=== PATIENT | female | born 1955 | race Caucasian/White ===

== ENCOUNTER 2023-07-22 05:51 | Emergency (ER) | payer MEDICARE, MEDICAID ==
[~2023-07-22 05:51] MED LIST: ALBU18HF2 INH; AMIT50TA15 PO; BACL20TA84 PO; CLON-527 PO; ESCI20TA39 PO; FENO134C21 PO; HYDR-4353 PO; TRAZ-91 PO
== END 2023-07-22 08:26 | disposition left against medical advice (07) ==
LOC: ER 05:51
DX: R21 Rash and other nonspecific skin eruption (principal); Z53.21 Procedure and treatment not carried out due to patient leaving prior to being seen by health care provider; F17.210 Nicotine dependence, cigarettes, uncomplicated; Z88.8 Allergy status to other drugs, medicaments and biological substances; Z88.1 Allergy status to other antibiotic agents; Z88.5 Allergy status to narcotic agent; Z91.041 Radiographic dye allergy status; Z79.899 Other long term (current) drug therapy; Z79.1 Long term (current) use of non-steroidal anti-inflammatories (NSAID)

== ENCOUNTER 2024-10-14 23:38 | Inpatient (IN) | payer MEDICARE, MEDICAID ==
[~2024-10-14] VITALS: Ht 167.6 cm; Wt 47.3 kg
[2024-10-15] VITALS (14 sets, daily range): BP systolic 96–152; BP diastolic 51–84; PULSE 89–113; RESP 16–26; TEMP 98.2–98.7; O2SAT 95–100
--- NOTE | 2024-10-15 00:42 | Physician Documentation ---
History of Present Illness ~ General Chief Complaint: See Chief Complaint Stated Complaint: BUGS,MULTIPLE COMPLAINTS Time Seen by MD: 00:35 Primary Medical Doctor: rae lambert Mode of Arrival: EMS, Stretcher History of Present Illness Initial Comments Patient presents to the emergency room brought in by EMS. Patient was no specific complaints. AGATHA had approached the patient and noted that there was an outstanding warrant however she would not be cleared therefore EMS was called. 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 She reports that this has been going on for two weeks. She was also noted to have matted hair that it was infested with maggots and other insects. She does endorse that her scalp it was causing her significant irritation. Medication Reconciliation Allergies: Coded Allergies: lorazepam (Verified Allergy, Intermediate, LOCK JAW, SPASMS, 08/08/13) amoxicillin (Verified Allergy, Unknown, bleeding ulcers, 03/19/15) bupropion (Verified Allergy, Unknown, suicidal thoughts., 03/19/15) codeine (Verified Allergy, Unknown, 03/19/15) erythromycin base (Verified Allergy, Unknown, 03/19/15) Scheduled Albuterol Sulfate (Ventolin Hfa), 2 PUFFS INH Q4HPRN, (Reported) Amitriptyline Hcl* (Elavil*), 2 TAB PO HS, (Reported) Baclofen (Baclofen), 20 MG PO HS, (Reported) Clonazepam* (Klonopin*), 2 MG PO HS, (Reported) Escitalopram Oxalate (Escitalopram Oxalate), 1 TABLET PO DAILY, (Reported) Fenofibrate,Micronized (Fenofibrate), 1 CAP PO DAILY, (Reported) Hydrocodone Bit/Acetaminophen (Dunbar 10-325 Tablet), 1 TAB PO Q6H PRN PAIN, (Reported) Trazodone Hcl* (Trazodone Hcl*), 100 MG PO HS, (Reported) Past Medical History Past Medical History: Seizures, Chronic Pain, Chronic Back Pain Past Surgical History: , other Alcohol Use: Occasionally Drug Use: none Review of Systems ROS Patient endorses scalp irritation as well as left eye irritation Physical Exam Physical Exam Vital Signs: Temperature: 99.1, Source: Oral, Heart Rate: 75, Respiratory Rate: 16, BP: 103/61, Pulse Oximetry: 98 Oxygen Flow Rate: 0 Physical Exam General: Patient is awake, alert, cooperative. Demonstrates poor insight. Homeless appearing. Very poor hygiene Head: Normocephalic with matted hair with insects and maggots crawling within it Eyes: Right eye normal left eye exam it was limited secondary to significant phlebitis unable to evaluate eye. No ecchymosis. ENT: Mucous membranes moist. Neck: Supple, trachea is midline. Chest: Clear to auscultation bilaterally without rales, rhonchi, or wheezes. There is no accessory muscle use or retractions. Cardiac: Tachycardic and regular without murmurs, gallops, or rubs. Abd: Soft, nondistended, nontender, with normoactive bowel sounds. No guarding, rebound, or rigidity. Progress Progress Note Patient agreeable to have her head shaved. After shaving patient's head a wound measuring approximately 0.5 cm could be seen in her left scalp along with approximately seven holes in her occiput with maggots crawling out of the holes. Despite shaving her head her scalp is still covered with insect and maggots. Patient continues to demonstrate very poor insight. We are able to get some records from [facility] however she was not seen and there was only triage notes stating that she was sleeping in the hallway and that her friend could pick her up using telepathy. Patient was being taken back to decontamination area for a 2nd washing and permethrin application Results/Orders Results/Orders Orders - RHYS OROZCO MD Urinalysis (10/15/24 01:10) Drug Screen, Urine (10/15/24 01:10) Med Rec (10/15/24 01:10) 1799.11 (10/15/24 01:10) Close Observation Level (10/15/24 01:10) Covid19 Binax Poc Result Entry (10/15/24 01:10) Substance Use Navigator (10/15/24 01:10) Regular Diet (10/15/24 Breakfast) Ct Facial Bones/Soft Tissue (10/15/24 03:45) Ct Head (10/15/24 03:45) Culture Blood (10/15/24 02:14) Chest,Single View (10/15/24 04:20) Completed Orders - RHYS OROZCO MD Permethrin Topical Cream (Elimite Cream (10/15/24 01:10) Cbc/Diff (10/15/24 01:10) Ethanol (10/15/24 01:10) TSH (10/15/24 01:10) Procalcitonin (10/15/24 01:10) Ct Facial Bones/Soft Tissue (10/15/24 03:45) Ct Head (10/15/24 03:45) CMP (10/15/24 01:10) Vancomycin/Ns 1 Gm Add-[place] (Vancomyc (10/15/24 01:20) Ceftriaxone/E8g-Lqplfnss 1gm (Rocephin 1 (10/15/24 01:20) Normal Saline 1000ml (Sodium Chloride 10 (10/15/24 01:50) Lacticsepsis (10/15/24 02:14) Normal Saline 1000ml (Sodium Chloride 10 (10/15/24 03:35) Chest,Single View (10/15/24 04:20) Lactic,2hr (10/15/24 04:34) Free T4 (10/15/24 04:40) MG (10/15/24 03:10) PHOS (10/15/24 03:10) Thiamine Inj. (Thiamine Inj.) (10/15/24 05:20) Medications Received in ER Medications (Trade) Dose Ordered Sig/Vickie Route PRN Reason Start Time Stop Time Status Last Admin Dose Admin (Elimite Cream 5%) 1 applic ONCE ONCE TP 10/15/24 01:10 10/15/24 01:17 DC 10/15/24 01:59 1 APPLIC Vancomycin HCl 250 ml @ 166 mls/hr ONCE ONCE IV 10/15/24 01:20 10/15/24 02:50 DC 10/15/24 01:59 166 MLS/HR Ceftriaxone Sodium 50 ml @ 100 mls/hr ONCE ONCE IV 10/15/24 01:20 10/15/24 01:49 DC 10/15/24 01:59 100 MLS/HR Sodium Chloride 1,000 ml @ 1,000 mls/hr ONCE ONCE IV 10/15/24 01:50 10/15/24 02:49 DC 10/15/24 01:59 1,000 MLS/HR Sodium Chloride 1,000 ml @ 1,000 mls/hr ONCE ONCE IV 10/15/24 03:35 10/15/24 04:34 DC 10/15/24 03:42 1,000 MLS/HR Vital Signs 10/14/24 10/15/24 10/15/24 10/15/24 23:46 00:29 00:29 02:28 Temp 99.1 Pulse 118 75 Resp 18 16 16 22 B/P (MAP) 103/61 (75) Pulse Ox 98 98 O2 Flow Rate 0 10/15/24 10/15/24 10/15/24 02:50 03:46 05:03 Pulse 95 92 89 Resp 16 16 18 B/P (MAP) 97/58 (71) 141/73 (95) 115/52 (73) Pulse Ox 99 99 99 O2 Flow Rate 0 Laboratory Tests Test 10/15/24 01:52 10/15/24 02:45 10/15/24 03:10 White Blood Count 7.8 Red Blood Count 4.32 Hemoglobin 11.8 L Hematocrit 35.8 Mean Corpuscular Volume 83.0 Mean Corpuscular Hemoglobin 27.2 Mean Corpuscular Hemoglobin Concent 32.8 L Red Cell Distribution Width 15.0 H Platelet Count 580 H Mean Platelet Volume 7.5 Neutrophils (%) (Auto) 78.3 H Lymphocytes (%) (Auto) 12.9 L Monocytes (%) (Auto) 8.0 Eosinophils (%) (Auto) 0.5 Basophils (%) (Auto) 0.3 Neutrophils # (Auto) 6.1 Lymphocytes # (Auto) 1.0 L Monocytes # (Auto) 0.6 Eosinophils # (Auto) 0.0 Basophils # (Auto) 0.0 CBC Comment Sodium Level 132 L Potassium Level 3.4 L Chloride Level 95 L Carbon Dioxide Level 19.0 L Anion Gap 18 H Blood Urea Nitrogen 29 H Creatinine 2.11 H Estimated GFR/1.73 m2 23 BUN/Creatinine Ratio 13.7 Glucose Level 170 H Lactic Acid Level 9.0 *H 7.3 *H Calcium Level 7.8 L Total Bilirubin 0.8 Aspartate Amino Transf (AST/SGOT) 44 H Alanine Aminotransferase (ALT/SGPT) 30 Alkaline Phosphatase 96 Total Protein 6.0 L Albumin 2.0 L Globulin 4.0 Albumin/Globulin Ratio 0.5 L Procalcitonin 7.92 H Thyroid Stimulating Hormone (TSH) 8.94 H Chemistry Comments Ethyl Alcohol Level < 10 SARS-CoV-2 Antigen (Rapid) Negative Phosphorus Level 5.4 H Magnesium Level 1.8 Free Thyroxine 0.89 Microbiology Date/Time Source Procedure Growth Status 10/15/24 03:10 Blood Arm Left Blood Culture - Preliminary NEGATIVE (LESS THAN 24 HOURS) Resulted Medical Decision Making Findings Patient presents to the emergency room brought in by EMS for evaluation. Patient was absolutely covered in bugs upon arrival. Patient's hair was severely matted and we were unable to wash the insects/maggots out. Status post patient's consent we did opt to shave her head and perform 2nd decontamination which revealed that patient had bugs actually coming out of several scalp wounds. I do believe patient was gravely disabled and she was placed on a 1799. Patient's only complaint is that she was tired and wants to sleep. Significant edema over left eye and it was concern for possible periorbital cellulitis therefore CT scan was performed which was negative for abscess and patient denies any pain with eye movement and he had not feel she was suffering from preseptal periorbital cellulitis although the CT scans were performed without contrast given her renal status. Empirical antibiotics initiated given patient's significant lactic acidosis. Tachycardia improved with IV fluids as has her lactic acid but still remains significantly high along with significant acid-base disturbances may reflect dehydration. Upon re-evaluation patient was lying on her right side in her right eye it was now become edematous. Possible component of hypoalbuminemia. Patient was thyroid was checked and although her TSH was elevated her free T4 was reassuring and he had not believe she was suffering from myxedema. Elevated procalcitonin but normal white blood cell count noted. Patient was case it was very complicated and given severe lactic acidosis and metabolic disturbances agile business analyst consulted for admission. Departure Admitted to Inpatient Unit: yes, to agile business analyst Impression: Primary Impression: Electrolyte disturbance Additional Impressions: Lactic acidosis Malnutrition Periorbital edema Infestation by insect Renal failure Referrals: NO PRIMARY CARE PROVIDER (PCP) Critical Care Note Total Time (mins): 129 Critical Care Note The very real possibility of a deterioration of this patient's condition required the highest level of my preparedness for sudden, emergent intervention. I provided critical care services, which included medication orders, frequent reevaluations of the patient's condition and response to treatment, ordering and reviewing test results, and discussing the case with various consultants. Excludes time spent performing separately billable procedures. The critical care time associated with the care of the patient was 129 minutes not counting procedures Signature Scribe Signature: No scribe Attestation: The note accurately reflects work and decisions made by me.Rhys Orozco MD 10/15/24 05:37 RHYS OROZCO MD Oct 15, 2024 00:42
[2024-10-15] MEDS: Permethrin Cream 60gm TP ONE (01:59)
[2024-10-15] MEDS: normal saline 1000ml 1,000 ML IV ONE ×2 (01:59→03:42)
[2024-10-15] MEDS: CefTRIAXone/D5W-Rocephin 1gm 50 ML IV ONE (01:59)
[2024-10-15] MEDS: vancomycin/NS 1 GM ADD-VANTAGE 250 ML IV ONE (01:59)
[2024-10-15 03:14] LABS: ALANINE AMINOTRANSFERASE 30 U/L (12-78); ALBUMIN/GLOBULIN RATIO 0.5 (1.1-1.5); ALKALINE PHOSPHATASE 96 IU/L (46-116); ANION GAP 18 (8-16); ASPARTATE AMINO TRANSFERASE 44 U/L (10-37); BASOPHILS % (AUTO) 0.3 % (0-1); BILIRUBIN,TOTAL 0.8 MG/DL (0.1-1.0); BLOOD UREA NITROGEN 29 MG/DL (7-18); BUN/CREATININE RATIO 13.7 (10.0-20.0); CALCIUM 7.8 MG/DL (8.5-10.1); CHLORIDE 95 MMOL/L (99-107); CREATININE 2.11 MG/DL (0.40-0.90); EOSINOPHILS % (AUTO) 0.5 % (0-6); GLUCOSE 170 MG/DL (70-104); HEMATOCRIT 35.8 % (35.0-45.0); HEMOGLOBIN 11.8 g/dl (12.0-16.0); LYMPHOCYTES % (AUTO) 12.9 % (21-51); MEAN CORPUSCULAR HEMOGLOBIN 27.2 PG (27.0-31.0); MEAN CORPUSCULAR HGB CONC 32.8 g/dL (33.0-36.5); MEAN PLATELET VOLUME 7.5 FL (7.4-10.4); MONOCYTES # (AUTO) 0.6 X10'3 (0-0.9); NEUTROPHILS # (AUTO) 6.1 X10'3 (1.8-7.7); NEUTROPHILS % (AUTO) 78.3 % (42-75); PLATELET COUNT 580 X10'3 (140-440); POTASSIUM 3.4 MMOL/L (3.5-5.1); RED BLOOD COUNT 4.32 X10'6 (4.20-5.60); SODIUM 132 MMOL/L (135-145); WHITE BLOOD COUNT 7.8 X10'3 (4.5-11.0); eGFR 23 ML/MIN
[2024-10-15 03:24] LABS: ETHANOL < 10 MG/DL (<10); THYROID STIMULATING HORMONE 8.94 ulU/ml (0.34-4.50)
--- NOTE | 2024-10-15 04:55 | RADIOLOGY REPORT ---
EXAM: CT CT HEAD INDICATION: eye swelling TECHNIQUE: CT of the head without intravenous contrast. Radiation Dose : 1. Head: CT Dose: CTDI volume is 71.7 mGy. Dose-length product is 1260.9 mGy*cm The dose indicators for CT are the volume Computed Tomography (CT) Dose Index (CTDIvol) and the Dose Length Product (DLP), and are measured in units of mGy and mGy-cm, respectively. These indicators are not patient dose, but values generated from the CT scanner acquisition factors. The report includes radiation exposure data for exposures received during this examination. COMPARISON: None FINDINGS: There is no evidence of acute intracranial hemorrhage, extra-axial collection, mass effect, midline s hift, herniation or hydrocephalus. The ventricles, sulci and cisterns are age appropriate. The montes de oca-white differentiation is intact. The visualized paranasal sinuses and mastoid air cells are clear. Left periorbital soft-tissue swelling. IMPRESSION: No acute intracranial abnormality. Radiation optimization: All CT scans at this facility use at least one of these dose optimization muna hniques: automated exposure control mA and/or kV adjustment per patient size (includes targeted exam s where dose is matched to clinical indication) or iterative reconstruction.
--- NOTE | 2024-10-15 05:00 | RADIOLOGY REPORT ---
HISTORY: eye swelling TECHNIQUE: Nonenhanced axial images through the facial bones with coronal and sagittal MPR. Radiation Dose Information: CT Dose: CTDI volume is 27.4 mGy. Dose-length product is 462.9 mGy*cm COMPARISON: None FINDINGS: Mandible: Unremarkable Maxilla: Unremarkable Zygomatic arches: Unremarkable Nasal bone: Unremarkable Orbits: Unremarkable Sinuses: Clear Facial swelling: Severe diffuse facial soft-tissue swelling most prominent around the orbits and lef t face. Extensive bilateral cervical chain lymphadenopathy most of which are subcentimeter in size, short axi s. IMPRESSION: Severe diffuse facial soft-tissue swelling most prominent around the orbits and left face. Extensive nonspecific bilateral cervical chain lymphadenopathy most of which are subcentimeter in siz e, short axis. Radiation optimization: All CT scans at this facility use at least one of these dose optimization muna hniques: automated exposure control mA and/or kV adjustment per patient size (includes targeted exam s where dose is matched to clinical indication) or iterative reconstruction.
[2024-10-15 05:01] LABS: FREE T4 (FREE THYROXINE) 0.89 NG/DL (0.73-1.40)
--- NOTE | 2024-10-15 05:01 | RADIOLOGY REPORT ---
CHEST RADIOGRAPH Indication: admision Technique: Single frontal view of the chest was obtained COMPARISON: None FINDINGS: Lines and Tubes: None Lungs: Clear Pleura: Small right pleural effusion No pneumothorax. Cardiomediastinal contours: Unremarkable Bones: Unremarkable IMPRESSION: Small right pleural effusion
[2024-10-15 05:18] LABS: MAGNESIUM 1.8 MG/DL (1.5-2.4); PHOSPHORUS 5.4 MG/DL (2.3-4.5)
[2024-10-15] MEDS: thiamine 100mg/ml 2ml inj. IV ONE (05:34)
[2024-10-15] MEDS ORDERED: mag hydrox/Alum hydrox/simeth 30ml oral suspension PO PRN (06:20)
[2024-10-15] MEDS ORDERED: ondansetron/PF 4mg/2ml inj IV PRN (06:20)
[2024-10-15] MEDS ORDERED: potassium Cl 40MEQ/1/2NS 520ml 520 ML IV PRN (06:20)
[2024-10-15] MEDS ORDERED: magnesium sulf-water 4G/100mL 100 ML IV PRN (06:20)
[2024-10-15] MEDS ORDERED: magnesium Cl slow-release 64mg tablet PO PRN (06:20)
[2024-10-15] MEDS ORDERED: potassium Cl 20 mEq SR tablet PO PRN (06:20)
[2024-10-15] MEDS ORDERED: magnesium sulf-water 2g/50mL 50 ML IV PRN (06:20)
[2024-10-15] MEDS: normal saline 1000ml 1,000 ML IV SCH (06:44)
[2024-10-15] MEDS ORDERED: vancomycin/NS 1 GM ADD-VANTAGE 250 ML IV PRN ×2 (07:20→12:05)
--- NOTE | 2024-10-15 07:35 | HISTORY AND PHYSICAL ---
History & Physical - Short Providers to ~ History of Present Illness Chief Complain & History 69 undomiciled female h/o depression, chronic pain was brought in for inappropriate behavior, non-compliance with law enforcement. On presentation was found to be dishevelled with significant infestations. Agree to have head shaved, permethrin applied. Was then found to have many maggots coming from scalp. Also found to have generalized anasarca with scalp, periorbital and facial edema. No specific cellulitic areas noted. Labs were significant for a very low albumin, a creatinine of 2.1, and a lactic acid of 9 that came down to 7 with hydration. Allergies: Coded Allergies: lorazepam (Verified Allergy, Intermediate, LOCK JAW, SPASMS, 08/08/13) bupropion (Verified Allergy, Unknown, suicidal thoughts., 03/19/15) codeine (Verified Allergy, Unknown, 03/19/15) erythromycin base (Verified Allergy, Unknown, 03/19/15) amoxicillin (Verified Adverse Reaction, Unknown, bleeding ulcers, 10/15/24) Home Medications Home Medications Active Reported Escitalopram Oxalate 20 Mg Tablet 1 Tablet PO DAILY Fenofibrate 134 Mg Capsule 1 Cap PO DAILY Ventolin Hfa (Albuterol) 8.5 Gm Inhaler 2 Puffs INH Q4HPRN Elavil* (Amitriptyline HCl) 50 Mg Tablet 2 Tab PO HS Klonopin* (Clonazepam) 1 Mg Tablet 2 Mg PO HS [place] 10-325 Tablet (Acetaminophen/Hydrocodone Bitart) 1 Each Tablet 1 Tab PO Q6H PRN PAIN Baclofen 20 Mg Tablet 20 Mg PO HS FALL RISK Trazodone Hcl* (Trazodone HCl) 100 Mg Tablet 100 Mg PO HS Exam Last recorded Lab results: 10/15/24 0152 10/15/24 0152 Vitals: Vital Signs Date Time Temp Pulse Resp B/P (MAP) Pulse Ox O2 Delivery O2 Flow Rate FiO2 10/15/24 06:39 17 10/15/24 06:39 98.1 94 98 0 Other: Exam limited to remote assessment Dishevelled female sleepy but easily arousable, oriented x 3, relatively non- compliant with exam Facial and periorbital edema appreciated Advance Care Planning Advanced Care planning: N/A Problem\Assessment\Plan Additional Plan Impression: Lactic acidosis ? due to dehydration +/- sepsis Renal failure ? ROB vs CKD Maggot infestation Severe malnutrition Rec: Cont IVF Cont thiamine Cont vanco plus CTX for now F/U serial lactic acid, ensure it is clearing F/U UA with reflex to culture F/U blood cultures Monitor for complications of malnutrition and refeeding Petroleum jelly to maggot holes for suffocation Social work consult Enoxaparin for VTE proph Plan reviewed with bedside team. Patient seen through remote audiovisual assessment through HIPAA compliant setup. All labs, flowsheets, and images reviewed Cumulative nonprocedural care time spent in directed patient care = 60 min CHERIE ALBRECHT MD Oct 15, 2024 07:35
[2024-10-15] MEDS ORDERED: famotidine 10mg tablet PO SCH (08:00)
[2024-10-15] MEDS ORDERED: thiamine 100mg/ml 2ml inj. IM SCH (08:00)
[2024-10-15] MEDS ORDERED: famotidine 20mg tablet PO SCH (08:14)
[2024-10-15] MEDS: famotidine 20mg tablet PO SCH (08:25)
[2024-10-15] MEDS: ringers solution, lacted 1,000 ML IV ONE ×2 (08:25→08:26)
[2024-10-15] MEDS: docusate sod 100mg capsule PO SCH (08:25)
[2024-10-15] MEDS: K and/or MAG REPLACEMENT MC SCH (08:30)
[2024-10-15] MEDS: diphenhydrAMINE 2%/zinc acetate cream TP SCH (09:34)
[2024-10-15] MEDS: acetaminophen 325mg tablet PO PRN ×2 (09:54→16:53)
[2024-10-15 09:55] LABS: PLATELET ESTIMATE INCREASED; TOTAL CELLS COUNTED 100
[2024-10-15 09:56] LABS: LARGE PLATELETS FEW
[2024-10-15] MEDS: ringers solution, lacted 1,000 ML IV SCH (10:35)
[2024-10-15] MEDS: MULTIVIT-MIN/FERROUS GLUCONATE 9 MG/15 ML LIQUID PO SCH (10:52)
--- NOTE | 2024-10-15 11:24 | PROGRESS NOTE- Residence ---
Progress Note - Resident Providers to CC Resident Creating Document: VASHTI ROACH RES CC: JOMAR CABALLERO MD ~ Central Line/PICC still needed: N\A Antibiotic Timeout Antibiotic Ordered?: No Subjective Patient is seen this morning in the ICU. She was sleepy, telling her name and date of . Objective Vital Signs Date Time Temp Pulse Resp B/P (MAP) Pulse Ox O2 Delivery O2 Flow Rate FiO2 10/15/24 11:00 98.2 110 20 103/64 (77) 98 Room Air 10/15/24 06:39 0 Result Diagram: 10/15/24 0152 10/15/24 0826 General: Elderly female, thin, malnourished, not in apparent distress, sunken facial fat, swelling around bith eyes , and head shaven and covered with a cover Head: Normocephalic with an atraumatic Eyes: not able to open eyes fully Nose and throat: No polyps, septum- normal, no mucosal ulcers Neck: Supple, no lymphadenopathy, no carotid bruit Respiratory: No use of accessory muscles of respiration, Bilateral normal vesiscular breath sounds heard. 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 As per ER history RPDA has approached with the patient and noted there was an outstanding warrant, then EMS was called and she could not be cleared. And she came to the ER she is complaining of swelling of her left eye, with itching of the scalp. In the ER patient head was shaved and holes were found in the occiput with maggots crawling out of the holes. Patient was taken to decontamination area and washroom and permethrin was applied. Was put on 1798 hold for gravely disabled. Is admitted to ICU for severe lactic acidosis Plan Plan Lactic acidosis-resolved HAGMA Severe dehydration -lactate normalized 1.9 after receiving IV fluids -anion gap of 18 with bicarbonate 19 at the time of admission -repeat BMP -with 3 L of LR -continue LR at 150 cc/hour Elevated creatinine Hyperphosphatemia Hypocalcemia -baseline creatinine available was 11 years ago -0.54 -suspect elevated creatinine likely secondary to ROB, however low calcium, and increased phos suggests CKD -monitor bmp -f/u on pth -continue IVF as mentioned above Maggots over scalp -permethrin applied -Benadryl p.o. for itching and hydrocortisone cream topical application Suspicion of periorbital cellulitis -bilateral periorbital swelling however CT RV did not show any abscess -WBC is normal with elevated procalcitonin of 7.92 -continue vanco and Rocephin Severe malnutrition Hypoalbuminemia -BMI of 13 with albumin of two -continue multivitamin and thiamine Anxiety/depression Morgellons disease -pending home med reconciliation -currently on [address] [facility], [facility] evaluation be done once medically cleared Hypothyroidism TSH 8.9 -started on levithyroxine 150 mcg? Undomiciled -SS/high risk case manager consulted Code Status: Full code Analgesia/sedation: Line/tube: PIV GI prophylaxis: Pepcid DVT prophylaxis: Lovenox Nutrition: Regular diet PT/OT/SP: Yes Prognosis: Guarded Disposition: Patient is downgraded to floor, ICU team will sign off Vashti Roach, ICU PGY-2 resident Date of Service: Oct 15, 2024 Billing Provider: JOMAR CABALLERO MD, HARIVARSHA, RES Oct 15, 2024 11:24
[2024-10-15 11:43] LABS: URINE AMPHETAMINE SCREEN NEGATIVE (Neg); URINE BARBITUATE SCREEN NEGATIVE (Neg); URINE BENZODIAZEPINES SCREEN NEGATIVE (Neg); URINE CANNABINOID SCREEN POSITIVE (Neg); URINE COCAINE SCREEN NEGATIVE (Neg); URINE METHADONE SCREEN NEGATIVE (Neg); URINE OPIATE SCREEN NEGATIVE (Neg); URINE PHENCYCLIDINE SCREEN NEGATIVE (Neg)
[2024-10-15 11:45] LABS: BILIRUBIN,URINE NEGATIVE (Neg); CLARITY,URINE CLOUDY (Clear); COLOR,URINE YELLOW (Yellow); GLUCOSE, URINE NEGATIVE (Neg); KETONES,URINE NEGATIVE (Neg); LEUKOCYTE ESTERASE ,URINE TRACE (Neg); OCCULT BLOOD,URINE LARGE (Neg); PROTEIN,URINE TRACE mg/dl (Neg); UROBILINOGEN,URINE 0.2 E.U/dL (0.2-1.0)
[2024-10-15 11:53] LABS: UA COLLECTION TYPE NON-SPECIFIED
[2024-10-15] MEDS: diphenhydrAMINE 50 mg/ml inj IV PRN (11:55)
[2024-10-15 12:11] LABS: NITRITES, URINE NEGATIVE (Neg)
[2024-10-15 12:13] LABS: FINE GRANULAR CAST 0-3 /LPF (NEGATIVE); RBC,URINE 0-2 /HPF (0-2); SQUAMOUS EPITHELIAL CELL,UR MANY /LPF (FEW)
[2024-10-15 12:14] LABS: BACTERIA,URINE 4+ /HPF (Neg)
--- NOTE | 2024-10-15 17:35 | CONSULTATION REPORT - RESIDENT ---
Consult Providers to CC Resident Creating Document: JUDYHA ONTIVEROS RES History of Present Illness Reason for Admit\Complaint: Failure to thrive History of Present Illness This is a 69-year-old undomiciled female with a history of depression, chronic pain was brought by EMS. She has matted hair that was infested with maggots and other insects. After patient's consent her head was shaved and D contamination was performed which revealed that the patient had bugs actually coming out of several scalp wounds. The patient was gravely disabled and was placed on 179. She also significant edema over bilateral eyes, there was a concern for possible periorbital cellulitis, CT scan was performed which was negative for abscess. She has a severe lactic acidosis, vancomycin and ceftriaxone was initiated. She was severely dehydrated, started on IV fluids. She was admitted in the ICU for severe lactic acidosis. As the lactic acid levels improved she was downgraded to PCU. Allergies: Coded Allergies: lorazepam (Verified Allergy, Intermediate, LOCK JAW, SPASMS, 08/08/13) bupropion (Verified Allergy, Unknown, suicidal thoughts., 03/19/15) codeine (Verified Allergy, Unknown, 03/19/15) erythromycin base (Verified Allergy, Unknown, 03/19/15) amoxicillin (Verified Adverse Reaction, Unknown, bleeding ulcers, 10/15/24) Home Medications Home Medications Active Reported Escitalopram Oxalate 20 Mg Tablet 1 Tablet PO DAILY Fenofibrate 134 Mg Capsule 1 Cap PO DAILY Ventolin Hfa (Albuterol) 8.5 Gm Inhaler 2 Puffs INH Q4HPRN Elavil* (Amitriptyline HCl) 50 Mg Tablet 2 Tab PO HS Klonopin* (Clonazepam) 1 Mg Tablet 2 Mg PO HS Lincoln 10-325 Tablet (Acetaminophen/Hydrocodone Bitart) 1 Each Tablet 1 Tab PO Q6H PRN PAIN Baclofen 20 Mg Tablet 20 Mg PO HS FALL RISK Trazodone Hcl* (Trazodone HCl) 100 Mg Tablet 100 Mg PO HS Past Medical History Past Medical History Unknown past medical history Past Surgical History Surgical History Comment Unknown surgical history Family History Family History: Patient reports no known family medical history. Past Social History Social History Comment Social history is not known, U tox positive for urine cannabinoids Exam Vitals: Vital Signs Date Time Temp Pulse Resp B/P (MAP) Pulse Ox O2 Delivery O2 Flow Rate FiO2 10/15/24 17:00 98.2 112 26 127/68 (87) 98 Room Air 10/15/24 06:39 0 General: General: Elderly female, thin, malnourished, not in apparent distress, sunken facial fat, swelling around bith eyes , and head shaven and covered with a cover Head: Normocephalic with an atraumatic Eyes: not able to open eyes fully Nose and throat: No polyps, septum- normal, no mucosal ulcers Neck: Supple, no lymphadenopathy, no carotid bruit Respiratory: No use of accessory muscles of respiration, Bilateral normal vesiscular breath sounds heard. 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 As per ER history RPDA has approached with the patient and noted there was an outstanding warrant, then EMS was called and she could not be cleared. And she came to the ER she is complaining of swelling of her left eye, with itching of the scalp. In the ER patient head was shaved and holes were found in the occiput with maggots crawling out of the holes. Patient was taken to decontamination area and washroom and permethrin was applied. Was put on 1798 hold for gravely disabled. Is admitted to ICU for severe lactic acidosis. Lactic acidosis improved Patient is downgraded to PCU. Plan Lactic acidosis-resolved High anion gap metabolic acidosis Positive SIRS Severe dehydration Lactic acid 9.0 at the time of admission with a bicarb of 19.0 an anion gap of 18 WBC count normal, elevated procalcitonin Blood culture Gram-positive cocci in clusters positive in one culture and negative in the other culture., probably contaminant received 3 L of fluids in the ER. Fluids currently running at@ 150 mL/hour Lactic acid improved to 0.9 with continuous IV fluids. Continue vancomycin and ceftriaxone. ROB likely secondary to vasomotor nephropathy Hyperphosphatemia Hypocalcemia Creatinine 2.7, BUN 29, GFR 23 -baseline creatinine available was 11 years ago -0.54 -suspect elevated creatinine likely secondary to ROB, however low calcium, and increased phos suggests CKD -Baseline creatinine is not -monitor bmp -f/u on pth -continue IVF. Maggots infestation -permethrin applied -Benadryl p.o. for itching and hydrocortisone cream topical application periorbital cellulitis can not be ruled out Periorbital edema -bilateral periorbital swelling however CT RV did not show any abscess -WBC is normal with elevated procalcitonin of 7.92 -continue vanco and Rocephin -cold compress recommended Severe malnutrition Hypoalbuminemia -BMI of 13 with albumin of two -continue multivitamin and thiamine Anxiety/depression Morgellons disease -currently on 1798 hold, [facility] evaluation be done once medically cleared Hypothyroidism TSH 8.9 -started on levithyroxine 150 mcg? Undomiciled -SS/shoe caser consulted Code Status: Full code Line/tube: PIV GI prophylaxis: Pepcid DVT prophylaxis: Lovenox Nutrition: Regular diet PT/OT/SP: Yes Prognosis: Guarded Disposition: Patient is downgraded to floor, ICU team will sign off Addendum lactic acidosis poss 2 to infection scalp cellulitis severe bilat upper and lower lid edema, unable to eval eye properly due to edema Date of Service: Oct 15, 2024 Billing Provider: FARHEEN MORRIS MD Common Visit Codes: [id number] INP/OBS CARE (HIGH) HA KIM, RES Oct 15, 2024 17:35 FARHEEN MORRIS MD Oct 15, 2024 19:08
[2024-10-15] MEDS: morphine 2 MG/ML inj. syringe IV PRN (19:10)
[2024-10-15] MEDS: enoxaparin 30mg/0.3ml syringe SUBCUT SCH (19:11)
[2024-10-15] MEDS: thiamine 100mg tablet PO SCH (20:09)
[2024-10-15] MEDS: HYDROcodone/acetaminophen 10/325mg tab PO PRN (20:10)
[2024-10-16] VITALS (9 sets, daily range): BP systolic 117–170; BP diastolic 59–88; PULSE 89–104; RESP 16–20; TEMP 97.2–98.9; O2SAT 94–99
[2024-10-16] MEDS: VANCOMYCIN LEVEL IV SCH (02:14)
[2024-10-16] MEDS ORDERED: VANCOMYCIN LEVEL IV SCH (03:00)
[2024-10-16] MEDS: HYDROcodone/acetaminophen 5mg/325mg tablet PO PRN (04:24)
[2024-10-16 06:03] LABS: BASOPHILS # (AUTO) 0.1 X10'3 (0-0.2); EOSINOPHILS # (AUTO) 0.4 X10'3 (0-0.9); EOSINOPHILS % (AUTO) 4.2 % (0-6); LYMPHOCYTES # (AUTO) 1.4 X10'3 (1.1-4.8); LYMPHOCYTES % (AUTO) 15.3 % (21-51); MEAN CORPUSCULAR HEMOGLOBIN 27.2 PG (27.0-31.0); MEAN CORPUSCULAR VOLUME 82.5 FL (78-98); MEAN PLATELET VOLUME 7.5 FL (7.4-10.4); MONOCYTES # (AUTO) 0.9 X10'3 (0-0.9); NEUTROPHILS # (AUTO) 6.3 X10'3 (1.8-7.7); NEUTROPHILS % (AUTO) 69.5 % (42-75); PLATELET COUNT 383 X10'3 (140-440); RED BLOOD COUNT 2.53 X10'6 (4.20-5.60); RED CELL DISTRIBUTION WIDTH 14.6 % (11.5-14.5)
[2024-10-16 06:08] LABS: HEMATOCRIT 20.8 % (35.0-45.0); HEMOGLOBIN 6.9 g/dl (12.0-16.0)
[2024-10-16 06:20] LABS: ANION GAP 10 (8-16); BLOOD UREA NITROGEN 27 MG/DL (7-18); BUN/CREATININE RATIO 28.1 (10.0-20.0); CALCIUM 7.6 MG/DL (8.5-10.1); CHLORIDE 112 MMOL/L (99-107); CREATININE 0.96 MG/DL (0.40-0.90); GLUCOSE 82 MG/DL (70-104); MAGNESIUM 1.8 MG/DL (1.5-2.4); PHOSPHORUS 3.1 MG/DL (2.3-4.5); SODIUM 144 MMOL/L (135-145); TOTAL CARBON DIOXIDE 21.9 MMOL/L (24-32); eCRCL 42 ML/MIN; eGFR 58 ML/MIN
[2024-10-16 06:21] LABS: ALANINE AMINOTRANSFERASE 31 U/L (12-78); ALBUMIN 1.4 G/DL (3.4-5.0); ALBUMIN/GLOBULIN RATIO 0.5 (1.1-1.5); ALKALINE PHOSPHATASE 70 IU/L (46-116); ASPARTATE AMINO TRANSFERASE 49 U/L (10-37); BILIRUBIN,TOTAL 0.2 MG/DL (0.1-1.0); TOTAL PROTEIN 4.5 G/DL (6.4-8.2)
[2024-10-16 06:31] LABS: VANCOMYCIN,RANDOM 4.4 ug/mL (20.0-30.0)
[2024-10-16] MEDS ORDERED: levoTHYROXINE 75mcg tablet PO SCH (07:00)
[2024-10-16] MEDS: CefTRIAXone/D5W-Rocephin 1gm 50 ML IV SCH (07:45)
[2024-10-16] MEDS: folic acid 1mg tablet PO SCH (07:47)
[2024-10-16] MEDS: potassium Cl 20 mEq SR tablet PO PRN (07:47)
[2024-10-16] MEDS ORDERED: CefTRIAXone/D5W-Rocephin 1gm 50 ML IV SCH (08:00)
[2024-10-16] MEDS: diphenhydrAMINE 25mg capsule PO PRN (08:03)
[2024-10-16] MEDS: NUT.TX.IMPAIRED DIGEST FXN (Ensure Clear) 237 ML PO SCH (08:12)
[2024-10-16] MEDS: multivitamins, therapeutics tablet PO SCH (08:12)
[2024-10-16 08:26] LABS: % IRON SATURATION 2 % (11-46); IRON 4 UG/DL (49-151); TOTAL IRON BINDING CAPACITY 189 UG/DL (259-388)
[2024-10-16] MEDS: morphine 2 MG/ML inj. syringe IV PRN (08:33)
[2024-10-16 08:40] LABS: FERRITIN 53 NG/ML (8-252)
[2024-10-16 09:05] LABS: PRO BRAIN NATRIURETIC PEPTIDE 2770 PG/ML (0-125)
--- NOTE | 2024-10-16 11:17 | PROGRESS NOTE- Residence ---
Progress Note - Resident Providers to CC Resident Creating Document: HA GOODMAN RES ~ Antibiotic Timeout Antibiotic Ordered?: Yes Subjective Patient is seen and examined in the PCU today. She complained of severe pain over her scalp. Pain medications has been given. Her hemoglobin dropped down to 6.8, 1 unit of PRBC ordered. Periorbital swelling has significantly improved Objective Vital Signs Date Time Temp Pulse Resp B/P (MAP) Pulse Ox O2 Delivery O2 Flow Rate FiO2 10/16/24 10:29 98.0 89 16 117/59 10/16/24 08:00 Room Air 10/16/24 06:00 99 10/15/24 06:39 0 Result Diagram: 10/16/2452610/16/24526 General: Elderly female, thin, malnourished, not in apparent distress, sunken facial fat, swelling around bith eyes , and head shaven and covered with a cover Head: Normocephalic with an atraumatic Eyes: Periorbital swelling seems to have improved. Nose and throat: No polyps, septum- normal, no mucosal ulcers Neck: Supple, no lymphadenopathy, no carotid bruit Respiratory: No use of accessory muscles of respiration, Bilateral normal vesiscular breath sounds heard. 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 As per ER history RPDA has approached with the patient and noted there was an outstanding warrant, then EMS was called and she could not be cleared. And she came to the ER she is complaining of swelling of her left eye, with itching of the scalp. In the ER patient head was shaved and holes were found in the occiput with maggots crawling out of the holes. Patient was taken to decontamination area and washroom and permethrin was applied. Was put on 1798 hold for gravely disabled. Is admitted to ICU for severe lactic acidosis. Patient's lactic acidosis has improved and has been downgraded to PCU. Plan Plan Plan Scalp cellulitis UTI Lactic acidosis-resolved High anion gap metabolic acidosis Positive SIRS Severe dehydration Lactic acid 9.0 at the time of admission with a bicarb of 19.0 an anion gap of 18 WBC count normal, elevated procalcitonin, elevated lactic acid Blood culture Gram-positive cocci in clusters positive in one culture and negative in the other culture., probably contaminant received 3 L of fluids in the ER. Urine analysis positive for infection, pending urine cultures Fluids currently running at@ 150 mL/hour Lactic acid improved to 0.9 with continuous IV fluids. Continue vancomycin and ceftriaxone. 10/16/2024-lactic acid elevated again 2.5, procalcitonin downtrending. Blood culture positive with Gram-positive cocci, repeat blood cultures ordered. Continuing vancomycin and ceftriaxone.-day two Normocytic normochromic anemia Iron-deficiency anemia Hemoglobin today 6.9, 1 unit of PRBC transfused. Iron studies showed low iron, low TIBC low % saturation, low normal ferritin Started on IV iron infusions. Stool occult blood test ordered Elevated proBNP ProBNP 2770 Patient is currently severely dehydrated, continuous fluids. Echo ordered. ROB likely secondary to vasomotor nephropathy Hyperphosphatemia Hypocalcemia Creatinine improved to baseline. -monitor bmp -f/u on pth -continue IVF. Hypokalemia Potassium today is 3.0, started on potassium replacement protocol. Maggots infestation -permethrin applied -Benadryl p.o. for itching and hydrocortisone cream topical application periorbital cellulitis can not be ruled out Periorbital edema -bilateral periorbital swelling however CT did not show any abscess -continue vanco and Rocephin -cold compress recommended -periorbital edema seems to have improved. Severe malnutrition Hypoalbuminemia -BMI of 13 with albumin of two -continue multivitamin and thiamine Anxiety/depression Morgellons disease Psychiatric consult requested. Hypothyroidism TSH 8.94 Undomiciled -SS/case managers consulted Code Status: Full code Line/tube: PIV GI prophylaxis: Pepcid DVT prophylaxis: Lovenox Nutrition: Regular diet PT/OT/SP: Yes Disposition: Psychiatric consult requested, Ha Goodman M.D PGY1 Date of Service: Oct 16, 2024 Billing Provider: FARHEEN MORRIS MD Common Visit Codes: [id number] INP/OBS CARE(HIGH) HA GOODMAN, RES Oct 16, 2024 11:17 FARHEEN MORRIS MD Oct 16, 2024 21:08
[2024-10-16] MEDS: vancomycin/NS 1 GM ADD-VANTAGE 250 ML IV SCH (13:08)
[2024-10-16 13:43] LABS: HEMATOCRIT 28.4 % (35.0-45.0); HEMOGLOBIN 9.2 g/dl (12.0-16.0); MEAN CORPUSCULAR HGB CONC 32.3 g/dL (33.0-36.5); MEAN CORPUSCULAR VOLUME 83.5 FL (78-98); MEAN PLATELET VOLUME 7.4 FL (7.4-10.4); PLATELET COUNT 474 X10'3 (140-440); RED CELL DISTRIBUTION WIDTH 14.5 % (11.5-14.5); WHITE BLOOD COUNT 11.8 X10'3 (4.5-11.0)
[2024-10-16] MEDS ORDERED: iron dextran complex inj. 0 MG in normal saline 500ml IV soln 500 ML IV SCH (14:00)
[2024-10-16] MEDS: iron dextran complex inj. 25 MG in normal saline 100ml IV soln 100 ML IV ONE (15:19)
[2024-10-16] MEDS: iron dextran complex inj. 75 MG in normal saline 100ml IV soln 100 ML IV ONE (16:59)
[2024-10-16] MEDS: lactose-reduced food (Ensure Enlive) - 237ml bottle PO SCH (18:00)
--- NOTE | 2024-10-16 18:55 | CARDIOLOGY REPORT ---
APPROVED REPORT EXAM: Comprehensive 2D, Doppler, and color-flow Echocardiogram. Patient Location: 4024B Blood Pressure: 170/69 mmHg Heart Rate: 97 bpm Rhythm: NSR Indications CHF Pro BNP 2770 No core maker No previous echo 2D Dimensions LA Diam3.9 cm IVSd 0.7 (0.7-1.1cm) LVDd 4.6 cm PWd 0.6 (0.7-1.1cm) IVSs 1.2 (0.8-1.2cm) LVDs 3.2 (2.5-4.0cm) Aortic Root(2D) 2.6 cm PWs 1.1 (0.8-1.2cm) LVOT Diameter 1.96 (1.8-2.4cm) LVEF(%) 55.6 (>50%) Ao Asc Diam.2.63 cmIVC 18.37 mm FS (%) 28.9 % SV 53.2 ml CO 9.0 L/min M-Mode Dimensions MV EPSS 0.9 (<0.5cm) Aortic Valve AoV Peak Paddy. 148.2 cm/s AoV VTI 28.0 cm AO Peak GR. 8.8 mmHg AO Mean GR. 5 mmHg LVOT VTI 19.69 cm LVOT Peak Paddy. 101.9 cm/s BRIONNA(VTI)/BSA 2.13 cm2/m2 BRIONNA (VTI) 2.13 cm2 Mitral Valve MV E Velocity 117.0 cm/s MV Peak Gr. 7 mmHg MV DECEL TIME 152 ms MV A Velocity 75.8 cm/s MV PHT 48 ms E/A Ratio 1.5 MVA (PHT) 4.58 cm2 MV GExu673.6 cm/s TDI Medial E' P. V 11.05 cm/s E/Medial E' 10.6 Tricuspid Valve TR P. Velocity 347 cm/s RAP ESTIMATE 10 mmHg TR Peak Gr. 48 mmHg RVSP 58 mmHg Pulmonary Vein S1 Velocity 62.2 cm/s D2 Velocity 63.0 cm/s PVa Omvrloah11.5 cm/s PVa Knfssukn03 msec LEFT VENTRICLE Normal LV size and wall thickness. Overall systolic function is normal. OverallLVEF is 60%. RIGHT VENTRICLE RV appears mildly dilated with normal contractility. RVSP is estimated at 58 mmHG. ATRIA The left atrium size is normal. AORTIC VALVE Trileaflet AV appears sclerotic without stenosis. No insufficiency. MITRAL VALVE MV is thickened with mild annular calcification and no stenosis. mild toModerate mitral regurgitation . TRICUSPID VALVE The tricuspid valve is normal in structure. PULMONIC VALVE The pulmonary valve is normal in structure. Mild to moderate pulmonic regurgitation. GREAT VESSELS The aortic root is normal in size. The ascending aorta is normal in size. The IVC is normal in size a nd collapses >50% with inspiration. PERICARDIUM There is no pericardial effusion. Other Information Study Quality: Adequate Conclusion OverallLVEF is 60%. Normal LV size and wall thickness. Overall systolic function is normal. RV appears mildly dilated with normal contractility. RVSP is estimated at 58 mmHG. Trileaflet AV appears sclerotic without stenosis. No insufficiency. mild toModerate mitral regurgitation. There is no pericardial effusion.
[2024-10-16] MEDS: clotrimazole 1% vaginal cream 45gm VG SCH (20:31)
[2024-10-16 23:03] LABS: HEMATOCRIT 26.9 % (35.0-45.0); MEAN CORPUSCULAR HEMOGLOBIN 27.7 PG (27.0-31.0); MEAN CORPUSCULAR HGB CONC 33.5 g/dL (33.0-36.5); MEAN CORPUSCULAR VOLUME 82.6 FL (78-98); MEAN PLATELET VOLUME 7.1 FL (7.4-10.4); PLATELET COUNT 465 X10'3 (140-440); RED BLOOD COUNT 3.26 X10'6 (4.20-5.60); RED CELL DISTRIBUTION WIDTH 14.5 % (11.5-14.5); WHITE BLOOD COUNT 11.2 X10'3 (4.5-11.0)
[2024-10-17 03:57] LABS: OCCULT BLOOD STOOL POSITIVE (Neg)
[2024-10-17 06:00] VITALS: BP 113/77; PULSE 85; RESP 18; TEMP 98.4; O2SAT 88
[2024-10-17 06:29] LABS: BASOPHILS % (AUTO) 0.4 % (0-1); EOSINOPHILS # (AUTO) 0.1 X10'3 (0-0.9); EOSINOPHILS % (AUTO) 0.7 % (0-6); HEMATOCRIT 28.4 % (35.0-45.0); HEMOGLOBIN 9.4 g/dl (12.0-16.0); LYMPHOCYTES # (AUTO) 1.5 X10'3 (1.1-4.8); LYMPHOCYTES % (AUTO) 12.5 % (21-51); MEAN CORPUSCULAR HEMOGLOBIN 27.3 PG (27.0-31.0); MEAN CORPUSCULAR HGB CONC 33.1 g/dL (33.0-36.5); MEAN CORPUSCULAR VOLUME 82.6 FL (78-98); MEAN PLATELET VOLUME 7.2 FL (7.4-10.4); MONOCYTES % (AUTO) 8.4 % (2-12); NEUTROPHILS # (AUTO) 9.5 X10'3 (1.8-7.7); PLATELET COUNT 454 X10'3 (140-440); RED BLOOD COUNT 3.44 X10'6 (4.20-5.60); RED CELL DISTRIBUTION WIDTH 14.7 % (11.5-14.5); WHITE BLOOD COUNT 12.2 X10'3 (4.5-11.0)
[2024-10-17 06:47] LABS: ALANINE AMINOTRANSFERASE 57 U/L (12-78); ALBUMIN 1.7 G/DL (3.4-5.0); ALBUMIN/GLOBULIN RATIO 0.4 (1.1-1.5); ALKALINE PHOSPHATASE 130 IU/L (46-116); ANION GAP 11 (8-16); ASPARTATE AMINO TRANSFERASE 104 U/L (10-37); BILIRUBIN,TOTAL 0.2 MG/DL (0.1-1.0); BLOOD UREA NITROGEN 15 MG/DL (7-18); BUN/CREATININE RATIO 16.3 (10.0-20.0); CALCIUM 7.9 MG/DL (8.5-10.1); CHLORIDE 107 MMOL/L (99-107); CREATININE 0.92 MG/DL (0.40-0.90); GLUCOSE 112 MG/DL (70-104); MAGNESIUM 1.7 MG/DL (1.5-2.4); PHOSPHORUS 2.7 MG/DL (2.3-4.5); SODIUM 139 MMOL/L (135-145); TOTAL CARBON DIOXIDE 20.9 MMOL/L (24-32); TOTAL PROTEIN 5.7 G/DL (6.4-8.2); eCRCL 44 ML/MIN; eGFR 61 ML/MIN
[2024-10-17] MEDS: iron dextran complex inj. 100 MG in normal saline 100ml IV soln 100 ML IV SCH (10:16)
[2024-10-17] MEDS: clonazePAM 0.5mg tablet PO PRN (11:47)
[2024-10-17] MEDS: pantoprazole 40 MG vial IV SCH (11:50)
[2024-10-17] MEDS ORDERED: famotidine 20mg tablet PO SCH (11:52)
[2024-10-17 12:18] LABS: HEMATOCRIT 30.5 % (35.0-45.0); HEMOGLOBIN 9.9 g/dl (12.0-16.0); MEAN CORPUSCULAR HEMOGLOBIN 27.3 PG (27.0-31.0); MEAN CORPUSCULAR HGB CONC 32.4 g/dL (33.0-36.5); MEAN CORPUSCULAR VOLUME 84.3 FL (78-98); MEAN PLATELET VOLUME 7.7 FL (7.4-10.4); PLATELET COUNT 492 X10'3 (140-440); RED BLOOD COUNT 3.61 X10'6 (4.20-5.60); WHITE BLOOD COUNT 12.6 X10'3 (4.5-11.0)
--- NOTE | 2024-10-17 13:04 | RADIOLOGY REPORT ---
CHEST RADIOGRAPH Indication: short of breath Technique: Single frontal view of the chest was obtained Comparison: DI CHEST,SINGLE VIEW on DOS: 10/15/24, DI CHEST,SINGLE VIEW on DOS: 10/15/24 FINDINGS: Lines and Tubes: None Lungs: Clear Pleura: Moderate right pleural effusion No pneumothorax. Cardiomediastinal contours: Unremarkable Bones: Unremarkable IMPRESSION: Moderate right pleural effusion
[2024-10-17] MEDS: vancomycin/NS 1 GM ADD-VANTAGE 250 ML IV SCH (13:54)
[2024-10-17 15:00] VITALS: BP 127/80; PULSE 101; RESP 16; O2SAT 91
[2024-10-17] MEDS: furosemide 20 MG/2 ML vial IV ONE (15:31)
--- NOTE | 2024-10-17 16:28 | PROGRESS NOTE- Residence ---
Progress Note - Resident Providers to CC Resident Creating Document: RENEA GOODMAN, MARK ~ Antibiotic Timeout Antibiotic Ordered?: Yes Subjective Patient is seen and examined in the PCU today. She continues to have breakthrough pain on her scalp. She was also feeling short of breath. IV fluids were stopped and one dose of Lasix given. Objective Vital Signs Date Time Temp Pulse Resp B/P (MAP) Pulse Ox O2 Delivery O2 Flow Rate FiO2 10/17/24 15:31 16 10/17/24 08:00 Nasal Cannula 1.0 10/17/24 06:00 98.4 85 113/77 (35) 88 Result Diagram: 10/17/24 1114 10/17/24 0600 General: Elderly female, thin, malnourished, not in apparent distress, sunken facial fat, swelling around bith eyes , and head shaven and covered with a cover Head: Normocephalic with an atraumatic Eyes: Periorbital swelling seems to have improved. Nose and throat: No polyps, septum- normal, no mucosal ulcers Neck: Supple, no lymphadenopathy, no carotid bruit Respiratory: No use of accessory muscles of respiration, Bilateral normal vesiscular breath sounds heard. 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 As per ER history RPDA has approached with the patient and noted there was an outstanding warrant, then EMS was called and she could not be cleared. And she came to the ER she is complaining of swelling of her left eye, with itching of the scalp. In the ER patient head was shaved and holes were found in the occiput with maggots crawling out of the holes. Patient was taken to decontamination area and washroom and permethrin was applied. Was put on 1798 hold for gravely disabled. Is admitted to ICU for severe lactic acidosis. Patient's lactic acidosis has improved and has been downgraded to PCU. Plan Plan Plan Scalp cellulitis UTI Lactic acidosis-resolved Positive SIRS Severe dehydration Mild leukocytosis, lactic acid trended down, procalcitonin trending down Blood culture Gram-positive cocci in clusters positive in one culture and negative in the other culture., probably contaminant Repeat Blood cultures negative. received 3 L of fluids in the ER. Urine analysis positive for infection, pending urine cultures Continue vancomycin and ceftriaxone-day three. Normocytic normochromic anemia Hemoglobin today 6.9, 1 unit of PRBC transfused, hemoglobin improved to 9.9. Iron studies showed low iron, low TIBC, low % saturation, low normal ferritin Stool occult blood test positive. Pantoprazole 40 mg p.o. b.i.d. Elevated proBNP ProBNP 2770 Echo showed normal left ventricular wall size and thickness, ejection fraction 60%. Mildly dilated right ventricle with RVSP 58 mmHg Repeat proBNP today 86685 One dose of Lasix has been given. ROB likely secondary to vasomotor nephropathy Hyperphosphatemia Hypocalcemia Creatinine improved to baseline. -monitor bmp Hypokalemia -improved -potassium replacement protocol and Maggots infestation -permethrin applied -Benadryl p.o. for itching and hydrocortisone cream topical application periorbital cellulitis- ruled out Periorbital edema -bilateral periorbital swelling however CT did not show any abscess -cold compress recommended -periorbital edema seems to have improved. Severe malnutrition Hypoalbuminemia -BMI of 13 with albumin of two -albumin 1.7 -continue multivitamin and thiamine -nutrition consult requested Anxiety/depression Morgellons disease Psychiatric consult requested. Hypothyroidism TSH 8.94 Undomiciled -SS/case management specialist consulted Code Status: Full code Line/tube: PIV GI prophylaxis: Pantoprazole DVT prophylaxis: Lovenox Nutrition: Regular diet PT/OT/SP: Yes Renea Goodman M.D PGY1 Addendum 1 of 2 bcx frm admission with mssa; on vanc; we ll discuss with ID; repeat bcx neg Date of Service: Oct 17, 2024 Billing Provider: FARHEEN MORRIS MD Common Visit Codes: [id number] INP/OBS CARE(HIGH) RENEA GOODMAN, RES Oct 17, 2024 16:28 FARHEEN MORRIS MD Oct 17, 2024 20:56
[2024-10-17 18:00] VITALS: BP 94/47; PULSE 109; RESP 19; TEMP 98.8; O2SAT 92
[2024-10-17] MEDS: pantoprazole 40mg Tablet.DR PO SCH (21:09)
[2024-10-17 22:00] VITALS: BP 122/79; PULSE 94; RESP 18; TEMP 97.6; O2SAT 93
[2024-10-18] VITALS (7 sets, daily range): BP systolic 96–136; BP diastolic 61–89; PULSE 71–114; RESP 18–22; TEMP 97.3–98.6; O2SAT 91–98
[2024-10-18 05:47] LABS: EOSINOPHILS # (AUTO) 0.5 X10'3 (0-0.9); HEMOGLOBIN 8.5 g/dl (12.0-16.0); LYMPHOCYTES # (AUTO) 2.9 X10'3 (1.1-4.8); MONOCYTES # (AUTO) 1.1 X10'3 (0-0.9); NEUTROPHILS # (AUTO) 7.5 X10'3 (1.8-7.7)
[2024-10-18 05:49] LABS: BASOPHILS # (AUTO) 0.1 X10'3 (0-0.2); BASOPHILS % (AUTO) 0.6 % (0-1); EOSINOPHILS % (AUTO) 4.4 % (0-6); HEMATOCRIT 25.5 % (35.0-45.0); LYMPHOCYTES % (AUTO) 23.7 % (21-51); MEAN CORPUSCULAR HEMOGLOBIN 27.4 PG (27.0-31.0); MEAN CORPUSCULAR HGB CONC 33.2 g/dL (33.0-36.5); MEAN CORPUSCULAR VOLUME 82.6 FL (78-98); MONOCYTES % (AUTO) 9.4 % (2-12); NEUTROPHILS % (AUTO) 61.9 % (42-75); PLATELET COUNT 418 X10'3 (140-440); RED BLOOD COUNT 3.09 X10'6 (4.20-5.60); RED CELL DISTRIBUTION WIDTH 14.6 % (11.5-14.5); WHITE BLOOD COUNT 12.1 X10'3 (4.5-11.0)
[2024-10-18 06:10] LABS: ALANINE AMINOTRANSFERASE 767 U/L (12-78); ALBUMIN 1.5 G/DL (3.4-5.0); ALBUMIN/GLOBULIN RATIO 0.4 (1.1-1.5); ALKALINE PHOSPHATASE 162 IU/L (46-116); ANION GAP 7 (8-16); BILIRUBIN,TOTAL 0.2 MG/DL (0.1-1.0); BLOOD UREA NITROGEN 14 MG/DL (7-18); BUN/CREATININE RATIO 17.3 (10.0-20.0); CALCIUM 7.9 MG/DL (8.5-10.1); CHLORIDE 105 MMOL/L (99-107); CREATININE 0.81 MG/DL (0.40-0.90); GLUCOSE 85 MG/DL (70-104); MAGNESIUM 1.6 MG/DL (1.5-2.4); PHOSPHORUS 3.3 MG/DL (2.3-4.5); POTASSIUM 4.1 MMOL/L (3.5-5.1); SODIUM 138 MMOL/L (135-145); TOTAL CARBON DIOXIDE 26.1 MMOL/L (24-32); TOTAL PROTEIN 5.1 G/DL (6.4-8.2); eCRCL 50 ML/MIN; eGFR 71 ML/MIN
[2024-10-18 06:11] LABS: ASPARTATE AMINO TRANSFERASE 2049 U/L (10-37)
[2024-10-18 07:41] LABS: NUCLEATED RED BLOOD CELLS 1 /100WBC (0-0); PLATELET ESTIMATE NORMAL; TOTAL CELLS COUNTED 100
[2024-10-18] MEDS: furosemide 20 MG/2 ML vial IV SCH (09:31)
--- NOTE | 2024-10-18 15:45 | PROGRESS NOTE- Residence ---
Progress Note - Resident Providers to CC Resident Creating Document: JOHN TERRY RES ~ Antibiotic Timeout Antibiotic Ordered?: Yes Subjective Her situation including anxiety and her scalp pain are getting better today. She remains to stay in the isolated room. Objective Vital Signs Date Time Temp Pulse Resp B/P (MAP) Pulse Ox O2 Delivery O2 Flow Rate FiO2 10/18/24 10:00 98.6 71 19 120/66 (84) 97 Room Air 10/17/24 08:00 1.0 Result Diagram: 10/18/2443310/18/24433 Vitals were stable at the moment. General: Elderly female, thin, malnourished, not in apparent distress, sunken facial fat, swelling around bith eyes , and head shaven and covered with a cover Head: Normocephalic with an atraumatic Eyes: Periorbital swelling seems to have improved. Nose and throat: No polyps, septum- normal, no mucosal ulcers Neck: Supple, no lymphadenopathy, no carotid bruit Respiratory: No use of accessory muscles of respiration, Bilateral normal vesiscular breath sounds heard. No wheeze, rhochi or creps Cardiac: S1-S2 heard, rythm regular, no gallop/murmur Abdomen: non distended, no tenderness, no organomegaly, bowel sounds- heard Extremities: no clubbing, no pedal edema, no deformities, peripheral pulses- 2+ Skin: warm and dry, no rash, no purpura Neuro: No focal deficit, gross cranial nerve exam- normal Assessment Assessment A 69-year-old female with history of morgellons disease, depression/anxiety, currently undomiciled. As per ER history RPDA has approached with the patient and noted there was an outstanding warrant, then EMS was called and she could not be cleared. And she came to the ER she is complaining of swelling of her left eye, with itching of the scalp. In the ER patient head was shaved and holes were found in the occiput with maggots crawling out of the holes. Patient was taken to decontamination area and washroom and permethrin was applied. Was put on 1798 hold for gravely disabled. Is admitted to ICU for severe lactic acidosis. Patient's lactic acidosis has improved and has been downgraded to PCU. Plan Plan Scalp cellulitis UTI Lactic acidosis-resolved Positive SIRS Severe dehydration -WBC slightly trending down, on IV vanc and ceftriaxone-day four and continue ABx -Blood culture showed MSSA, and informed and requested to Dr Danielle's ID Consultation and appreciate it. -received 3 L of fluids in the ER. -Urine analysis positive for infection, pending urine cultures Normocytic normochromic anemia -Hemoglobin today stabilized w/ 8.5 and dropped from 9.9 yesterday -1 unit of PRBC transfused, hemoglobin improved to 9.9. -Iron studies showed low iron, low TIBC, low % saturation, low normal ferritin -Stool occult blood test positive. -Pantoprazole 40 mg p.o. b.i.d. -plan for H&H if Hb dropped more than 1 unit worth of Hb tomorrow. Elevated proBNP ProBNP 2770 Echo showed normal left ventricular wall size and thickness, ejection fraction 60%. Mildly dilated right ventricle with RVSP 58 mmHg Repeat proBNP today 05294 One dose of Lasix has been given. ROB likely secondary to vasomotor nephropathy Hyperphosphatemia Hypocalcemia -normalized with today Cr 0.81 -maintain optimal hydration and I's and O's -daily BMP Hypokalemia -improved -potassium replacement protocol and Maggots infestation -permethrin applied -Benadryl p.o. for itching and hydrocortisone cream topical application periorbital cellulitis- ruled out Periorbital edema -bilateral periorbital swelling however CT did not show any abscess -cold compress recommended -periorbital edema seems to have improved. Severe malnutrition Hypoalbuminemia -BMI of 13 with albumin of two -albumin 1.7 -continue multivitamin and thiamine -nutrition consult requested Anxiety/depression Morgellons disease Psychiatric consult requested. Hypothyroidism TSH 8.94 Undomiciled -SS/protective services case worker consulted Code Status: Full code Line/tube: PIV GI prophylaxis: Pantoprazole DVT prophylaxis: Lovenox Nutrition: Regular diet PT/OT/SP: Yes Disposition: F/up w/ ID for MSSA blood culture, and continue IV ABx, Anemia monitoring, transportation services representative and psych consult, PT eval and DC Plan with possible rehab. Resident MD attestation: Patient was seen and examined with attending MD, Dr. Negrito TERRY MD Internal Medicine Resident, PGY2 [facility] Addendum ac on chr cor pulmonale, iv lasix Date of Service: Oct 18, 2024 Billing Provider: FARHEEN MORRIS MD Common Visit Codes: [id number] INP/OBS CARE(HIGH) JOHN TERRY, RES Oct 18, 2024 15:45 FARHEEN MORRIS MD Oct 18, 2024 18:37
[2024-10-19 05:00] VITALS: BP 128/60; PULSE 94; RESP 19; TEMP 97.8; O2SAT 93
[2024-10-19 06:46] LABS: BASOPHILS # (AUTO) 0.1 X10'3 (0-0.2); BASOPHILS % (AUTO) 0.8 % (0-1); LYMPHOCYTES # (AUTO) 4.6 X10'3 (1.1-4.8); MEAN CORPUSCULAR HEMOGLOBIN 26.9 PG (27.0-31.0); MEAN CORPUSCULAR HGB CONC 32.6 g/dL (33.0-36.5); MEAN PLATELET VOLUME 7.9 FL (7.4-10.4)
[2024-10-19 06:48] LABS: EOSINOPHILS # (AUTO) 1.4 X10'3 (0-0.9); EOSINOPHILS % (AUTO) 7.9 % (0-6); HEMATOCRIT 27.2 % (35.0-45.0); HEMOGLOBIN 8.9 g/dl (12.0-16.0); LYMPHOCYTES % (AUTO) 26.6 % (21-51); MEAN CORPUSCULAR VOLUME 82.5 FL (78-98); MONOCYTES # (AUTO) 1.9 X10'3 (0-0.9); MONOCYTES % (AUTO) 10.8 % (2-12); NEUTROPHILS # (AUTO) 9.4 X10'3 (1.8-7.7); NEUTROPHILS % (AUTO) 53.9 % (42-75); PLATELET COUNT 450 X10'3 (140-440); RED CELL DISTRIBUTION WIDTH 14.8 % (11.5-14.5); WHITE BLOOD COUNT 17.4 X10'3 (4.5-11.0)
[2024-10-19 07:14] LABS: ALANINE AMINOTRANSFERASE 716 U/L (12-78); ALBUMIN 1.5 G/DL (3.4-5.0); ALBUMIN/GLOBULIN RATIO 0.4 (1.1-1.5); ALKALINE PHOSPHATASE 180 IU/L (46-116); ANION GAP 6 (8-16); ASPARTATE AMINO TRANSFERASE 846 U/L (10-37); BILIRUBIN,TOTAL 0.2 MG/DL (0.1-1.0); BLOOD UREA NITROGEN 14 MG/DL (7-18); BUN/CREATININE RATIO 20.3 (10.0-20.0); CALCIUM 7.4 MG/DL (8.5-10.1); CHLORIDE 100 MMOL/L (99-107); CREATININE 0.69 MG/DL (0.40-0.90); GLUCOSE 79 MG/DL (70-104); MAGNESIUM 1.4 MG/DL (1.5-2.4); PHOSPHORUS 2.6 MG/DL (2.3-4.5); SODIUM 137 MMOL/L (135-145); TOTAL PROTEIN 5.3 G/DL (6.4-8.2); eCRCL 59 ML/MIN; eGFR 85 ML/MIN
[2024-10-19 07:15] LABS: POTASSIUM 3.6 MMOL/L (3.5-5.1)
[2024-10-19] MEDS ORDERED: magnesium sulf-water 4G/100mL 100 ML IV PRN (08:15)
[2024-10-19] MEDS ORDERED: magnesium sulf-water 2g/50mL 50 ML IV PRN (08:15)
[2024-10-19] MEDS: magnesium Cl slow-release 64mg tablet PO PRN (08:27)
[2024-10-19 09:27] LABS: NUCLEATED RED BLOOD CELLS 8 /100WBC (0-0); TOTAL CELLS COUNTED 100
[2024-10-19 09:30] LABS: ANISOCYTOSIS 1+; PLATELET ESTIMATE INCREASED
[2024-10-19 09:32] LABS: POLYCHROMASIA 1+
[2024-10-19 10:00] VITALS: BP 118/77; PULSE 107; RESP 25; TEMP 100.1; O2SAT 97
[2024-10-19] MEDS: terbinafine 250mg tablet PO SCH (12:27)
[2024-10-19] MEDS ORDERED: VANCOMYCIN LEVEL IV ONE (12:30)
[2024-10-19] MEDS: levoFLOXACIN-Levaquin 500mg/D5 100 ML IV SCH (12:32)
--- NOTE | 2024-10-19 13:53 | RADIOLOGY REPORT ---
EXAM: CT CT CHEST History: pna/effusion Comparison Study: None available TECHNIQUE: Multidetector CT of the chest was performed. Imaging was performed without IV contrast. Ax ial, coronal, and sagittal multiplanar reformats were obtained from the axial data set by the technol ogbaldemar. Radiation Dose : CTDI vol 6.21 mGy, DLP 226.79 mGy*cm. Findings: Lungs: Superior right lower lobe consolidation. Pleura: Small bilateral pleural effusions. Heart/Great vessels: No cardiomegaly or pericardial effusion. Mediastinum: Unremarkable Soft tissues/Bones: Unremarkable The partially visualized upper abdomen is within normal limits. Impression: 1. Superior right lower lobe consolidation favored an infectious/inflammatory etiology. 2. Small bilateral pleural effusions. 3. Recommend follow-up to resolution.
[2024-10-19] MEDS: ceFAZolin/D5W- 1GM premix 50 ML IV SCH (16:10)
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
[2024-10-19 18:00] VITALS: BP_SYST 107; BP_SYST 137; BP_DIAS 61; BP_DIAS 89; PULSE 84; PULSE 97; RESP 18; TEMP 97.4; TEMP 97.8; O2SAT 91; O2SAT 93
--- NOTE | 2024-10-19 19:03 | PROGRESS NOTE- Residence ---
Progress Note - Resident Providers to CC Resident Creating Document: HA GOODMAN RES ~ Antibiotic Timeout Antibiotic Ordered?: Yes Subjective Patient is seen and examined at the bedside today. No acute overnight events. Appears to be calm. Objective Vital Signs Date Time Temp Pulse Resp B/P (MAP) Pulse Ox O2 Delivery O2 Flow Rate FiO2 10/19/24 13:27 14 10/19/24 10:00 100.1 107 118/77 (91) 97 Room Air 10/19/24 08:00 0.0 Result Diagram: 10/19/24 0608 10/19/24 06 General: Elderly female, thin, malnourished, not in apparent distress, sunken facial fat, swelling around bith eyes , and head shaven and covered with a cover Head: Normocephalic with an atraumatic Eyes: Periorbital swelling seems to have improved. Nose and throat: No polyps, septum- normal, no mucosal ulcers Neck: Supple, no lymphadenopathy, no carotid bruit Respiratory: No use of accessory muscles of respiration, Bilateral normal vesiscular breath sounds heard. No wheeze, rhochi or creps Cardiac: S1-S2 heard, rythm regular, no gallop/murmur Abdomen: non distended, no tenderness, no organomegaly, bowel sounds- heard Extremities: no clubbing, no pedal edema, no deformities, peripheral pulses- 2+ Skin: warm and dry, no rash, no purpura Neuro: No focal deficit, gross cranial nerve exam- normal Assessment Assessment A 69-year-old female with history of morgellons disease, depression/anxiety, currently undomiciled. As per ER history [employer] has approached with the patient and noted there was an outstanding warrant, then EMS was called and she could not be cleared. And she came to the ER she is complaining of swelling of her left eye, with itching of the scalp. In the ER patient head was shaved and holes were found in the occiput with maggots crawling out of the holes. Patient was taken to decontamination area and washroom and permethrin was applied. Was put on 1798 hold for gravely disabled. Is admitted to ICU for severe lactic acidosis. Patient's lactic acidosis has improved and has been downgraded to PCU. Plan Plan Plan Scalp cellulitis-possible fungal infection UTI Lactic acidosis-resolved Positive SIRS Severe dehydration WBC count trending up, lactic acid trended down, procalcitonin trending down Blood culture positive for Staph aureus Repeat Blood cultures negative. received 3 L of fluids in the ER. Received three dose of vancomycin and ceftriaxone. Dr. Danielle consulted, discontinued vancomycin and ceftriaxone and started on cefazolin Started on thiamine heparin to 50 mg daily for scalp infection. Wound care for scalp Possible pneumonia Chest x-ray showed moderate right pleural effusion Chest CT showed Superior right lower lobe consolidation favored an infectious/inflammatory etiology. started on levofloxacin Normocytic normochromic anemia Hemoglobin 6.9, at the time of admission 1 unit of PRBC transfused, Hemoglobin stable at 8.9 Iron studies showed low iron, low TIBC, low % saturation, low normal ferritin Stool occult blood test positive. Pantoprazole 40 mg p.o. b.i.d. Elevated proBNP ProBNP 2770 Echo showed normal left ventricular wall size and thickness, ejection fraction 60%. Mildly dilated right ventricle with RVSP 58 mmHg Repeat proBNP today 62417 One dose of Lasix has been given. ROB likely secondary to vasomotor nephropathy Hyperphosphatemia Hypocalcemia Creatinine improved to baseline. -monitor bmp Hypokalemia -improved -potassium replacement protocol and Maggots infestation -permethrin applied -Benadryl p.o. for itching and hydrocortisone cream topical application periorbital cellulitis- ruled out Periorbital edema -bilateral periorbital swelling however CT did not show any abscess -cold compress recommended -periorbital edema seems to have improved. Severe malnutrition Hypoalbuminemia -BMI of 13 with albumin of two -albumin 1.7 -continue multivitamin and thiamine -nutrition consult requested Anxiety/depression Morgellons disease Psychiatric consult requested. Hypothyroidism TSH 8.94 Undomiciled -SS/employment evaluator/case manager consulted Code Status: Full code Line/tube: PIV GI prophylaxis: Pantoprazole DVT prophylaxis: Lovenox Nutrition: Regular diet PT/OT/SP: Yes Ha Goodamn M.D PGY1 Date of Service: Oct 19, 2024 Billing Provider: FARHEEN MORRIS MD Common Visit Codes: [id number] INP/OBS CARE(HIGH) AH GOODMAN, RES Oct 19, 2024 19:03 FARHEEN MORRIS MD Oct 19, 2024 20:41
[2024-10-19 22:00] VITALS: BP 140/81; PULSE 98; RESP 20; TEMP 98.6; O2SAT 95
[2024-10-20 06:00] VITALS: BP 121/76; PULSE 86; RESP 18; TEMP 97.5; O2SAT 90
[2024-10-20 06:11] LABS: BASOPHILS # (AUTO) 0.1 X10'3 (0-0.2); HEMATOCRIT 29.3 % (35.0-45.0); HEMOGLOBIN 9.5 g/dl (12.0-16.0); MONOCYTES # (AUTO) 2.1 X10'3 (0-0.9)
[2024-10-20 06:12] LABS: BASOPHILS % (AUTO) 0.5 % (0-1); EOSINOPHILS # (AUTO) 1.1 X10'3 (0-0.9); EOSINOPHILS % (AUTO) 7.5 % (0-6); LYMPHOCYTES # (AUTO) 4.5 X10'3 (1.1-4.8); LYMPHOCYTES % (AUTO) 30.7 % (21-51); MEAN CORPUSCULAR HEMOGLOBIN 27.3 PG (27.0-31.0); MEAN CORPUSCULAR HGB CONC 32.5 g/dL (33.0-36.5); MEAN CORPUSCULAR VOLUME 84.1 FL (78-98); MEAN PLATELET VOLUME 7.6 FL (7.4-10.4); MONOCYTES % (AUTO) 14.3 % (2-12); PLATELET COUNT 510 X10'3 (140-440); RED BLOOD COUNT 3.48 X10'6 (4.20-5.60); RED CELL DISTRIBUTION WIDTH 14.8 % (11.5-14.5); WHITE BLOOD COUNT 14.8 X10'3 (4.5-11.0)
[2024-10-20 06:34] LABS: ALANINE AMINOTRANSFERASE 639 U/L (12-78); ALBUMIN 1.5 G/DL (3.4-5.0); ALBUMIN/GLOBULIN RATIO 0.4 (1.1-1.5); ALKALINE PHOSPHATASE 185 IU/L (46-116); ANION GAP 4 (8-16); ASPARTATE AMINO TRANSFERASE 622 U/L (10-37); BILIRUBIN,TOTAL 0.2 MG/DL (0.1-1.0); BLOOD UREA NITROGEN 16 MG/DL (7-18); BUN/CREATININE RATIO 21.6 (10.0-20.0); CALCIUM 7.9 MG/DL (8.5-10.1); CHLORIDE 100 MMOL/L (99-107); CREATININE 0.74 MG/DL (0.40-0.90); GLUCOSE 75 MG/DL (70-104); MAGNESIUM 1.6 MG/DL (1.5-2.4); PHOSPHORUS 3.1 MG/DL (2.3-4.5); POTASSIUM 3.8 MMOL/L (3.5-5.1); SODIUM 139 MMOL/L (135-145); TOTAL CARBON DIOXIDE 34.8 MMOL/L (24-32); TOTAL PROTEIN 5.6 G/DL (6.4-8.2); eCRCL 55 ML/MIN; eGFR 78 ML/MIN
[2024-10-20 08:00] VITALS: RESP 14; O2SAT 94
[2024-10-20 09:03] LABS: NUCLEATED RED BLOOD CELLS 8 /100WBC (0-0); TOTAL CELLS COUNTED 100
[2024-10-20 09:05] LABS: ANISOCYTOSIS 1+; PLATELET ESTIMATE INCREASED; POLYCHROMASIA 1+
[2024-10-20 09:06] LABS: HYPOCHROMASIA 1+; STOMATOCYTES 1+
[2024-10-20 09:07] LABS: LARGE PLATELETS FEW
[2024-10-20 10:00] VITALS: BP 111/57; PULSE 86; RESP 14; TEMP 98; O2SAT 94
--- NOTE | 2024-10-20 10:03 | PROGRESS NOTE ---
Progress Note Dictate Providers to CC ~ Subjective Subjective: She states that her head is feeling a bit better. She has been applying antifungal cream as well. Objective Objective: GENERAL: She is an elderly female lying in bed looking stable HEENT: Scalp looks better with less crusting and less erythema LUNGS: Clear to auscultation bilaterally. HEART: Regular rate and rhythm. ABDOMEN: Soft, nontender, nondistended. EXTREMITIES: No edema. Lab Results: 10/20/2452610/20/24526 Lab comments: 10/16 blood culture negative thus far Radiology comments: CT chest 1. Superior right lower lobe consolidation. 2. Small bilateral pleural effusions. Problem\Assessment\Plan Additional Plan 1. MSSA sepsis of unclear etiology. I would favor a skin/soft tissue source, although pulmonary source is also possible. 2. Possible right lower lobe pneumonia with effusion. 3. Scalp infection that may have a bacterial component but I am also concerned about potential fungal infection (tinea capitis). 4. Homelessness with malnutrition. Continue cefazolin Continue levofloxacin Continue terbinafine Follow-up blood cultures Encourage oral intake ANUJ COELHO MD Oct 20, 2024 10:03
[2024-10-20 17:00] VITALS: BP 126/86; PULSE 96; RESP 16; TEMP 97.4; O2SAT 96
[2024-10-20 18:00] VITALS: BP 111/57; PULSE 86; RESP 14; TEMP 98; O2SAT 94
--- NOTE | 2024-10-20 19:00 | PROGRESS NOTE- Residence ---
Progress Note - Resident Providers to CC Resident Creating Document: HA GOODMAN RES ~ Antibiotic Timeout Antibiotic Ordered?: Yes Subjective Patient is seen and examined at the bedside today. No acute overnight events. Appears to be calm. Objective Vital Signs Date Time Temp Pulse Resp B/P (MAP) Pulse Ox O2 Delivery O2 Flow Rate FiO2 10/20/24 17:00 97.4 96 16 126/86 (99) 96 Room Air 10/20/24 08:00 0.0 Result Diagram: 10/20/2452610/20/24526 General: Elderly female, thin, malnourished, not in apparent distress, sunken facial fat , and head shaven and covered with a cover Head: Normocephalic with an atraumatic Eyes: Periorbital swelling seems to have improved. Nose and throat: No polyps, septum- normal, no mucosal ulcers Neck: Supple, no lymphadenopathy, no carotid bruit Respiratory: No use of accessory muscles of respiration, Bilateral normal vesiscular breath sounds heard. No wheeze, rhochi or creps Cardiac: S1-S2 heard, rythm regular, no gallop/murmur Abdomen: non distended, no tenderness, no organomegaly, bowel sounds- heard Extremities: no clubbing, no pedal edema, no deformities, peripheral pulses- 2+ Skin: warm and dry, no rash, no purpura Neuro: No focal deficit, gross cranial nerve exam- normal Assessment Assessment A 69-year-old female with history of morgellons disease, depression/anxiety, currently undomiciled. As per ER history [facility] has approached with the patient and noted there was an outstanding warrant, then EMS was called and she could not be cleared. And she came to the ER she is complaining of swelling of her left eye, with itching of the scalp. In the ER patient head was shaved and holes were found in the occiput with maggots crawling out of the holes. Patient was taken to decontamination area and washroom and permethrin was applied. Was put on 1798 hold for gravely disabled. Is admitted to ICU for severe lactic acidosis. Patient's lactic acidosis has improved and has been downgraded to PCU. Plan Plan Plan Scalp cellulitis-possible fungal infection UTI Lactic acidosis-resolved Positive SIRS Severe dehydration WBC count trending up, lactic acid trended down, procalcitonin trending down Blood culture positive for Staph aureus Repeat Blood cultures negative. received 3 L of fluids in the ER. Received three dose of vancomycin and ceftriaxone. Dr. Danielle consulted, discontinued vancomycin and ceftriaxone and started on cefazolin-day two Started on terbinafine 50 mg daily for scalp infection. Wound care for scalp Possible pneumonia, broad-spectrum antibiotics covering Gram-positive and Gram- negative organisms Chest x-ray showed moderate right pleural effusion Chest CT showed Superior right lower lobe consolidation favored an infectious/inflammatory etiology. started on levofloxacin-day two Normocytic normochromic anemia Hemoglobin 6.9, at the time of admission 1 unit of PRBC transfused, Hemoglobin stable at 9.5 Iron studies showed low iron, low TIBC, low % saturation, low normal ferritin Stool occult blood test positive. Pantoprazole 40 mg p.o. b.i.d. Elevated proBNP ProBNP 2770 Echo showed normal left ventricular wall size and thickness, ejection fraction 60%. Mildly dilated right ventricle with RVSP 58 mmHg Repeat proBNP today 82612 One dose of Lasix has been given. ROB likely secondary to renal tubular stasis Hyperphosphatemia Hypocalcemia Creatinine improved to baseline. -monitor bmp Elevated transaminases AST and ALT elevated, trending down. Hypokalemia -improved -potassium replacement protocol and Maggots infestation -permethrin applied -Benadryl p.o. for itching and hydrocortisone cream topical application periorbital cellulitis- ruled out Periorbital edema -bilateral periorbital swelling however CT did not show any abscess -cold compress recommended -periorbital edema seems to have improved. Severe malnutrition Hypoalbuminemia -BMI of 13 with albumin of two -albumin 1.7 -continue multivitamin and thiamine -nutrition consult requested Anxiety/depression Morgellons disease Psychiatric consult requested. Hypothyroidism TSH 8.94 Undomiciled -SS/case management manager consulted Code Status: Full code Line/tube: PIV GI prophylaxis: Pantoprazole DVT prophylaxis: Lovenox Nutrition: Regular diet PT/OT/SP: Yes Ha Goodman M.D PGY1 Date of Service: Oct 20, 2024 Billing Provider: FARHEEN MORRIS MD Common Visit Codes: [id number] INP/OBS CARE(HIGH) HA GOODMAN, RES Oct 20, 2024 19:00 FARHEEN MORRIS MD Oct 21, 2024 21:36
[2024-10-20 22:00] VITALS: BP 139/89; PULSE 97; RESP 20; TEMP 98.2; O2SAT 99
[2024-10-21 04:34] LABS: BASOPHILS # (AUTO) 0.1 X10'3 (0-0.2); HEMOGLOBIN 8.6 g/dl (12.0-16.0); MEAN PLATELET VOLUME 7.6 FL (7.4-10.4); NEUTROPHILS % (AUTO) 50.4 % (42-75); RED CELL DISTRIBUTION WIDTH 15.1 % (11.5-14.5)
[2024-10-21 04:37] LABS: EOSINOPHILS # (AUTO) 1.4 X10'3 (0-0.9); EOSINOPHILS % (AUTO) 10.4 % (0-6); HEMATOCRIT 26.3 % (35.0-45.0); LYMPHOCYTES # (AUTO) 3.4 X10'3 (1.1-4.8); LYMPHOCYTES % (AUTO) 26.1 % (21-51); MEAN CORPUSCULAR HEMOGLOBIN 27.6 PG (27.0-31.0); MEAN CORPUSCULAR HGB CONC 32.6 g/dL (33.0-36.5); MEAN CORPUSCULAR VOLUME 84.7 FL (78-98); MONOCYTES # (AUTO) 1.6 X10'3 (0-0.9); MONOCYTES % (AUTO) 12.1 % (2-12); NEUTROPHILS # (AUTO) 6.6 X10'3 (1.8-7.7); PLATELET COUNT 479 X10'3 (140-440)
[2024-10-21 04:44] LABS: ALANINE AMINOTRANSFERASE 440 U/L (12-78); ALBUMIN 1.5 G/DL (3.4-5.0); ALBUMIN/GLOBULIN RATIO 0.4 (1.1-1.5); ALKALINE PHOSPHATASE 229 IU/L (46-116); ANION GAP 2 (8-16); ASPARTATE AMINO TRANSFERASE 423 U/L (10-37); BILIRUBIN,TOTAL 0.2 MG/DL (0.1-1.0); BLOOD UREA NITROGEN 15 MG/DL (7-18); BUN/CREATININE RATIO 21.7 (10.0-20.0); CALCIUM 7.8 MG/DL (8.5-10.1); CHLORIDE 105 MMOL/L (99-107); CREATININE 0.69 MG/DL (0.40-0.90); GLUCOSE 85 MG/DL (70-104); MAGNESIUM 1.8 MG/DL (1.5-2.4); PHOSPHORUS 3.5 MG/DL (2.3-4.5); SODIUM 138 MMOL/L (135-145); TOTAL CARBON DIOXIDE 30.7 MMOL/L (24-32); TOTAL PROTEIN 5.6 G/DL (6.4-8.2); eCRCL 59 ML/MIN; eGFR 85 ML/MIN
[2024-10-21 05:52] LABS: NUCLEATED RED BLOOD CELLS 7 /100WBC (0-0); TOTAL CELLS COUNTED 100
[2024-10-21 05:53] LABS: ANISOCYTOSIS 1+; PLATELET ESTIMATE INCREASED; POLYCHROMASIA 1+
[2024-10-21 05:54] LABS: HYPOCHROMASIA 1+
[2024-10-21 06:50] VITALS: BP 127/84; PULSE 90; RESP 18; TEMP 97.9; O2SAT 93
[2024-10-21 08:00] VITALS: RESP 16; O2SAT 94
[2024-10-21] MEDS ORDERED: diphenhydrAMINE 25mg capsule PO PRN (08:45)
[2024-10-21 10:00] VITALS: BP 107/59; PULSE 80; RESP 18; TEMP 97.9; O2SAT 96
--- NOTE | 2024-10-21 15:46 | PROGRESS NOTE- Residence ---
Progress Note - Resident Providers to CC Resident Creating Document: HA GOODMAN RES ~ Antibiotic Timeout Antibiotic Ordered?: Yes Subjective Patient is seen and examined at the bedside today. No acute overnight events. She complained of itchiness all over her body. Objective Vital Signs Date Time Temp Pulse Resp B/P (MAP) Pulse Ox O2 Delivery O2 Flow Rate FiO2 10/21/24 10:00 97.9 80 18 107/59 (75) 96 Room Air 10/21/24 08:00 0.0 Result Diagram: 10/21/2440610/21/24406 General: Elderly female, thin, malnourished, not in apparent distress, sunken facial fat , and head shaven and covered with a cover Head: Normocephalic with an atraumatic Eyes: Periorbital swelling seems to have improved. Nose and throat: No polyps, septum- normal, no mucosal ulcers Neck: Supple, no lymphadenopathy, no carotid bruit Respiratory: No use of accessory muscles of respiration, Bilateral normal vesiscular breath sounds heard. No wheeze, rhochi or creps Cardiac: S1-S2 heard, rythm regular, no gallop/murmur Abdomen: non distended, no tenderness, no organomegaly, bowel sounds- heard Extremities: no clubbing, no pedal edema, no deformities, peripheral pulses- 2+ Skin: warm and dry, no rash, no purpura Neuro: No focal deficit, gross cranial nerve exam- normal Assessment Assessment A 69-year-old female with history of morgellons disease, depression/anxiety, currently undomiciled. As per ER history [facility] has approached with the patient and noted there was an outstanding warrant, then EMS was called and she could not be cleared. And she came to the ER she is complaining of swelling of her left eye, with itching of the scalp. In the ER patient head was shaved and holes were found in the occiput with maggots crawling out of the holes. Patient was taken to decontamination area and washroom and permethrin was applied. Was put on 1798 hold for gravely disabled. Is admitted to ICU for severe lactic acidosis. Patient's lactic acidosis has improved and has been downgraded to PCU. Plan Plan Plan Scalp cellulitis-possible fungal infection UTI Lactic acidosis-resolved Sepsis, POA secondary to above Severe dehydration WBC count trending up, lactic acid trended down, procalcitonin trending down Blood culture positive for Staph aureus Repeat Blood cultures negative. received 3 L of fluids in the ER. Received three dose of vancomycin and ceftriaxone. Dr. Danielle consulted, discontinued vancomycin and ceftriaxone and started on cefazolin-day3 Started on terbinafine 50 mg daily for scalp infection. Patient will be needing IV antibiotic course, for midline placed. Wound care for scalp Possible pneumonia, broad-spectrum antibiotics covering Gram-positive and Gram- negative organisms Chest x-ray showed moderate right pleural effusion Chest CT showed Superior right lower lobe consolidation favored an infectious/inflammatory etiology. started on levofloxacin-day two Normocytic normochromic anemia Possible upper GI bleed Hemoglobin 6.9, at the time of admission 1 unit of PRBC transfused, Hemoglobin 8.6 Iron studies showed low iron, low TIBC, low % saturation, low normal ferritin Stool occult blood test positive. Pantoprazole 40 mg p.o. b.i.d. Elevated proBNP ProBNP 2770 Echo showed normal left ventricular wall size and thickness, ejection fraction 60%. Mildly dilated right ventricle with RVSP 58 mmHg Repeat proBNP today 05400 One dose of Lasix has been given. ROB likely secondary to renal tubular stasis Hyperphosphatemia Hypocalcemia Creatinine improved to baseline. -monitor bmp Elevated transaminases AST and ALT elevated, trending down. Hypokalemia -improved -potassium replacement protocol and Maggots infestation -permethrin applied -Benadryl p.o. for itching and hydrocortisone cream topical application periorbital cellulitis- ruled out Periorbital edema -bilateral periorbital swelling however CT did not show any abscess -cold compress recommended -periorbital edema seems to have improved. Severe malnutrition Hypoalbuminemia -BMI of 13 with albumin of two -albumin 1.7 -continue multivitamin and thiamine -nutrition consult requested Anxiety/depression Morgellons disease Psychiatric consult requested. Hypothyroidism TSH 8.94 Undomiciled -SS/c[employer] shoe parts consulted Code Status: Full code Line/tube: PIV GI prophylaxis: Pantoprazole DVT prophylaxis: Lovenox Nutrition: Regular diet PT/OT/SP: Yes Ha Goodman M.D PGY1 Date of Service: Oct 21, 2024 Billing Provider: FARHEEN MORRIS MD Common Visit Codes: [id number] INP/OBS CARE(HIGH) HA GOODMAN, RES Oct 21, 2024 15:46 FARHEEN MORRIS MD Oct 21, 2024 21:37
[2024-10-21 18:00] VITALS: BP 132/83; PULSE 95; RESP 18; TEMP 97.4; O2SAT 96
[2024-10-21] MEDS: magnesium hydroxide 30ml (MOM) UD suspension PO PRN (21:35)
[2024-10-21 22:00] VITALS: BP 142/79; PULSE 91; RESP 16; TEMP 98.7; O2SAT 99
[2024-10-22 05:08] LABS: BASOPHILS # (AUTO) 0.1 X10'3 (0-0.2); BASOPHILS % (AUTO) 0.6 % (0-1); EOSINOPHILS # (AUTO) 2.2 X10'3 (0-0.9); EOSINOPHILS % (AUTO) 17.4 % (0-6); HEMATOCRIT 28.6 % (35.0-45.0); HEMOGLOBIN 9.3 g/dl (12.0-16.0); LYMPHOCYTES # (AUTO) 2.8 X10'3 (1.1-4.8); LYMPHOCYTES % (AUTO) 22.1 % (21-51); MEAN CORPUSCULAR HEMOGLOBIN 27.6 PG (27.0-31.0); MEAN CORPUSCULAR HGB CONC 32.7 g/dL (33.0-36.5); MEAN CORPUSCULAR VOLUME 84.4 FL (78-98); MONOCYTES # (AUTO) 1.1 X10'3 (0-0.9); MONOCYTES % (AUTO) 8.4 % (2-12); NEUTROPHILS # (AUTO) 6.5 X10'3 (1.8-7.7); NEUTROPHILS % (AUTO) 51.5 % (42-75); PLATELET COUNT 547 X10'3 (140-440); RED BLOOD COUNT 3.39 X10'6 (4.20-5.60); RED CELL DISTRIBUTION WIDTH 15.4 % (11.5-14.5); WHITE BLOOD COUNT 12.6 X10'3 (4.5-11.0)
[2024-10-22 05:18] LABS: ALANINE AMINOTRANSFERASE 264 U/L (12-78); ALBUMIN 1.5 G/DL (3.4-5.0); ALBUMIN/GLOBULIN RATIO 0.3 (1.1-1.5); ALKALINE PHOSPHATASE 209 IU/L (46-116); ANION GAP 3 (8-16); ASPARTATE AMINO TRANSFERASE 154 U/L (10-37); BILIRUBIN,TOTAL 0.2 MG/DL (0.1-1.0); BLOOD UREA NITROGEN 13 MG/DL (7-18); CALCIUM 7.9 MG/DL (8.5-10.1); CHLORIDE 103 MMOL/L (99-107); CREATININE 0.62 MG/DL (0.40-0.90); GLUCOSE 87 MG/DL (70-104); MAGNESIUM 2.1 MG/DL (1.5-2.4); POTASSIUM 4.1 MMOL/L (3.5-5.1); SODIUM 135 MMOL/L (135-145); TOTAL CARBON DIOXIDE 29.1 MMOL/L (24-32); TOTAL PROTEIN 5.8 G/DL (6.4-8.2); eCRCL 66 ML/MIN; eGFR > 90 ML/MIN
[2024-10-22 06:12] LABS: HBSAG SCREEN Negative (Negative); HEP A AB, IGM Negative (Negative); HEP B CORE AB, IGM Negative (Negative); HEP B SURF AB Non Reactive (.); HEPATITIS C VIRUS ANTIBODY Reactive (Non Reactive)
[2024-10-22 08:12] LABS: NUCLEATED RED BLOOD CELLS 2 /100WBC (0-0); TOTAL CELLS COUNTED 100
[2024-10-22 08:13] LABS: PLATELET ESTIMATE INCREASED; POLYCHROMASIA 1+
[2024-10-22 10:00] VITALS: BP 120/63; PULSE 16; RESP 17; TEMP 97.3; O2SAT 96
[2024-10-22 10:16] VITALS: RESP 16
--- NOTE | 2024-10-22 21:00 | DISCHARGE SUMMARY-Residence ---
Discharge Summary Providers to CC Resident Creating Document: HANH KIMELIZABETHSHANIAMARK ~ Discharge Summary Admission Diagnosis: Sepsis Hospital Course DATE OF ADMISSION: 10/15/2024 DATE OF DISCHARGE: 10/22/2024 Labs at the time of discharge WBC 12.6 Hemoglobin 9.3 Platelet count 547 Sodium 136 Potassium 4.1 GFR 19 Creatinine 0.62 AST 151 ALT 264 Alkaline phosphatase 209 TSH 8.94 next Urine tox positive for cannabinoids Stool occult blood test positive Hepatitis-C antibody reactive Head CT No acute intracranial abnormality. Face CT Severe diffuse facial soft-tissue swelling most prominent around the orbits and left face. Extensive nonspecific bilateral cervical chain lymphadenopathy most of which are subcentimeter in size, short axis. Echocardiogram OverallLVEF is 60%. Normal LV size and wall thickness. Overall systolic function is normal. RV appears mildly dilated with normal contractility. RVSP is estimated at 58 mmHG. Trileaflet AV appears sclerotic without stenosis. No insufficiency. mild toModerate mitral regurgitation. There is no pericardial effusion. Chest CT 1. Superior right lower lobe consolidation favored an infectious/inflammatory etiology. 2. Small bilateral pleural effusions. 3. Recommend follow-up to resolution. Discharge Diagnosis\Comment: Scalp cellulitis, possible fungal infection UTI Sepsis present on admission Pneumonia Upper GI bleed, Normocytic anemia ROB Elevated transaminases Periorbital edema Hypoalbuminemia, severe malnutrition Morgellons disease Hypothyroidism Operations\Procedures: None Consultants: Dr. Danielle. Complications: None Condition on DC: Stable Discharge Summary: A 69-year-old female with history of morgellons disease, depression/anxiety, currently undomiciled. As per ER history [facility] has approached with the patient and noted there was an outstanding warrant, then EMS was called and she could not be cleared. And she came to the ER she is complaining of swelling of her left eye, with itching of the scalp. In the ER patient head was shaved and holes were found in the occiput with maggots crawling out of the holes. Patient was taken to decontamination area and washroom and permethrin was applied. Was put on 1798 hold for gravely disabled. Is admitted to ICU for severe lactic acidosis. Patient's lactic acidosis has improved and has been downgraded to PCU. At the time of admission lactic acid significantly elevated, trended down with IV fluids. Was admitted for possible sepsis, source of infection scalp cellulitis versus UTI. She has possible scalp cellulitis, she was initially started on vancomycin and ceftriaxone. Dr. Danielle was consulted, vanc and ceftriaxone were discontinued and was started on IV cefazolin and IV Levaquin. Fungal infection was suspected on the scalp, terbinafine was started. Chest x-ray inches CT showed possible findings of pneumonia, the above antibiotics covering He also had UTI at the time of presentation, antibiotics above covered. Normocytic normochromic anemia with possible GI bleed and positive stool occult blood. 1 unit of PRBC has been transfused. And was placed on pantoprazole 40 mg b.i.d. She had significantly elevated transaminases at the time of presentation, slowly trended down. Significant periorbital edema at the time of presentation, phase CT she had not show any significant findings, improved with ice compresses. A maggot infestation, permethrin cream was applied and Benadryl p.o. p.r.n. was given for itching. Albumin level was 1.7 with a BMI of 13, was diagnosed with severe malnutrition and hypoalbuminemia. Multivitamins, thiamine and nutritional consult was done. TSH 8.94, hypothyroidism, discharged with levothyroxine. dental services director consulted. Pain management was done with morphine and Hopkins p.r.n. Patient was stable in enough to be transferred. At the time of discharge he had the following physical examination findings General: Elderly female, thin, malnourished, not in apparent distress, sunken facial fat , and head shaven and covered with a cover Head: Normocephalic with an atraumatic Eyes: Periorbital swelling seems to have improved. Nose and throat: No polyps, septum- normal, no mucosal ulcers Neck: Supple, no lymphadenopathy, no carotid bruit Respiratory: No use of accessory muscles of respiration, Bilateral normal vesiscular breath sounds heard. No wheeze, rhochi or creps Cardiac: S1-S2 heard, rythm regular, no gallop/murmur Abdomen: non distended, no tenderness, no organomegaly, bowel sounds- heard Extremities: no clubbing, no pedal edema, no deformities, peripheral pulses- 2+ Skin: warm and dry, no rash, no purpura Discharge medications IV cefazolin-stop date 11/02/2024 Levaquin-stop date 11/02/2024 Terbinafine-stop date 11/02/2024 Levothyroxine 25 mcg daily Benadryl p.o. p.r.n. Morphine and Hopkins p.r.n. Follow up with PCP in two weeks Follow up with the psychiatrist Continue to use the antibiotics until the stop date *Problems/Diagnosis: (1) Periorbital edema Status: Acute (2) Lactic acidosis Status: Acute (3) Infestation by insect Status: Acute (4) Malnutrition Status: Acute Total Time Spent on D/C: Up to 30 Minutes Date of Service: Oct 22, 2024 Billing Provider: FARHEEN MORRIS MD Common Visit Codes: 05731-RGY/OBS DISCH DAY >30min HA KIM, RES Oct 22, 2024 21:00 FARHEEN MORRIS MD Oct 22, 2024 21:51
== END 2024-10-22 15:12 | DRG 871 ==
LOC: ER 23:39 → ED HOLD 10-15 06:23 → EDBEDREQ 10-15 06:48 → CICU 2S 10-15 07:20 → ORTHO 4S 10-15 19:19
PROVIDERS: ADMIT Internal Medicine Critical Care Medicine; ATTEND Internal Medicine Critical Care Medicine
PROC: 30233N1 Transfusion of Nonautologous Red Blood Cells into Peripheral Vein, Percutaneous Approach (ICD-10-PCS; principal; 2024-10-16)
PROC: 05HY33Z Insertion of Infusion Device into Upper Vein, Percutaneous Approach (ICD-10-PCS; 2024-10-21)
PROC: B54NZZA Ultrasonography of Left Upper Extremity Veins, Guidance (ICD-10-PCS; 2024-10-21)
DX: A41.01 Sepsis due to Methicillin susceptible Staphylococcus aureus (principal); E43 Unspecified severe protein-calorie malnutrition; J18.9 Pneumonia, unspecified organism; L03.811 Cellulitis of head [any part, except face]; E87.20 Acidosis, unspecified; Z68.1 Body mass index [BMI] 19.9 or less, adult; Z59.00 Homelessness unspecified; N39.0 Urinary tract infection, site not specified; K92.2 Gastrointestinal hemorrhage, unspecified; N17.9 Acute kidney failure, unspecified; E86.0 Dehydration; F32.A Depression, unspecified; F41.9 Anxiety disorder, unspecified; G89.29 Other chronic pain; Z20.822 Contact with and (suspected) exposure to COVID-19; M54.9 Dorsalgia, unspecified; E88.09 Other disorders of plasma-protein metabolism, not elsewhere classified; E03.9 Hypothyroidism, unspecified; R74.01 Elevation of levels of liver transaminase levels; B87.9 Myiasis, unspecified; E83.39 Other disorders of phosphorus metabolism; E83.51 Hypocalcemia; D64.9 Anemia, unspecified; Z88.5 Allergy status to narcotic agent; Z88.8 Allergy status to other drugs, medicaments and biological substances; Z88.0 Allergy status to penicillin; Z91.199 Patient's noncompliance with other medical treatment and regimen due to unspecified reason
CPT/HCPCS: 36410; 36415; 36430; 70450; 70486; 71045; 71250; 76937; 80053; 80202; 80305; 80320; 81001; 82272; 82728; 83540; 83550; 83605; 83735; 83880; 84100; 84132; 84145; 84439; 84443; 85007; 85025; 85027; 86705; 86706; 86709; 86803; 86885; 86900; 86901; 86920; 87040; 87077; 87081; 87186; 87340; 87522; 87811; 93306; 96365; 96368; 96375; 97116; 97161; 97530; 99285; A4615; A6196; A6213; A6223; A6250; A6258; A6449; C1751; G0378; J0690; J0696; J1200; J1650; J1750; J1938; J1956; J2270; J2470; J3370; J3411; J7030; J7040; J7120; P9016; Q0163